=== PATIENT | female | born 1970 | race Caucasian/White ===

== ENCOUNTER 2020-03-14 06:11 | Day surgery (SDC) | payer MEDICAID, SELFPAY ==
--- NOTE | 2020-03-13 08:23 | HO.ANESPROP2 ---
Documented by User: Aileen Stark 03/13/20 08:41 HPI - Anesthesia Eval Consult details Narrative: 50yo F for R breast mass excision (nipple) PMFSH Past Medical History Medical History (Updated 03/13/20 @ 08:39 by Aileen Stark) High cholesterol Migraines Surgical History Surgical History (Updated 03/13/20 @ 08:40 by Aileen Stark) History of pubovaginal sling History of tubal ligation Social History Social History Use of substances other than those prescribed or required for medical reasons: No Advance Directives: No Advance Directives Information Provided: Yes Advance Directives on File: No Meds Allergies Allergy/AdvReac Type Severity Reaction Status Date / Time cyclobenzaprine Allergy Unknown Unknown Verified 03/13/20 11:31 oxybutynin Allergy Unknown Unknown Verified 03/13/20 11:31 tolterodine Allergy Unknown Unknown Verified 03/13/20 11:31 trospium Allergy Unknown Unknown Verified 03/13/20 11:31 Home Medications Medication Instructions Recorded Confirmed Type atorvastatin 20 mg PO DAILY 03/13/20 03/13/20 History calcium polycarbophil [FiberCon] 1,250 mg PO TID 03/13/20 03/13/20 History cholecalciferol (vitamin D3) 50 mcg PO DAILY 03/13/20 03/13/20 History [Vitamin D3] cholestyramine-aspartame 4 g PO DAILY 03/13/20 03/13/20 History [Cholestyramine Light] diphenhydramine HCl [Benadryl] 25 mg PO DAILY 03/13/20 03/13/20 History docusate sodium [Colace] 100 mg PO DAILY 03/13/20 03/13/20 History epinephrine 03/13/20 History fexofenadine 180 mg PO DAILY 03/13/20 03/13/20 History fexofenadine [Corrine Allergy] 60 mg PO BID 03/13/20 03/13/20 History fluticasone propionate [Flonase] 1 spray INTRANASAL DAILY 03/13/20 03/13/20 History gabapentin 300 mg PO DAILY 03/13/20 03/13/20 History ibuprofen 600 mg PO TID 03/13/20 03/13/20 History omeprazole 20 mg PO DAILY 03/13/20 03/13/20 History topiramate 25 mg PO BID 03/13/20 03/13/20 History Exam Exam Date and Time: March 13, 2020 0823 Assessment and Plan Assessment Anesthesia Assessment: Chart Reviewed Documented by User: Treva Zimmer 03/14/20 07:17 REPLACED BY [facility] Past Medical History Medical History (Updated 03/13/20 @ 08:39 by Aileen Stark) High cholesterol Migraines Surgical History Surgical History (Updated 03/13/20 @ 08:40 by Aileen Stark) History of pubovaginal sling History of tubal ligation Social History Social History Use of substances other than those prescribed or required for medical reasons: No Advance Directives: No Advance Directives Information Provided: Yes Advance Directives on File: No Meds Allergies Allergy/AdvReac Type Severity Reaction Status Date / Time cyclobenzaprine Allergy Unknown Unknown Verified 03/13/20 11:31 oxybutynin Allergy Unknown Unknown Verified 03/13/20 11:31 tolterodine Allergy Unknown Unknown Verified 03/13/20 11:31 trospium Allergy Unknown Unknown Verified 03/13/20 11:31 Home Medications Medication Instructions Recorded Confirmed Type atorvastatin 20 mg PO DAILY 03/13/20 03/13/20 History calcium polycarbophil [FiberCon] 1,250 mg PO TID 03/13/20 03/13/20 History cholecalciferol (vitamin D3) 50 mcg PO DAILY 03/13/20 03/13/20 History [Vitamin D3] cholestyramine-aspartame 4 g PO DAILY 03/13/20 03/13/20 History [Cholestyramine Light] diphenhydramine HCl [Benadryl] 25 mg PO DAILY 03/13/20 03/13/20 History docusate sodium [Colace] 100 mg PO DAILY 03/13/20 03/13/20 History epinephrine 03/13/20 History fexofenadine 180 mg PO DAILY 03/13/20 03/13/20 History fexofenadine [Corrine Allergy] 60 mg PO BID 03/13/20 03/13/20 History fluticasone propionate [Flonase] 1 spray INTRANASAL DAILY 03/13/20 03/13/20 History gabapentin 300 mg PO DAILY 03/13/20 03/13/20 History ibuprofen 600 mg PO TID 03/13/20 03/13/20 History omeprazole 20 mg PO DAILY 03/13/20 03/13/20 History topiramate 25 mg PO BID 03/13/20 03/13/20 History Exam Airway Mallampati Class: II TM Dist: >3cm Neck ROM: Full Heart: RRR Lungs: CTA BL Assessment and Plan Assessment Anesthesia Assessment: Anesthesia Plan Discussed and Chart Reviewed Final Anesthetic Review NPO: Yes ASA Class: II Final Preanesthetic Review: Meds/Allgs Chart Reviewed, Consent Obtained/Reviewed and Anes Risks/Benef Reviewed Patient Risk: Intermediate Procedure Risk: Intermediate Anesthetic Plan Anesthetic Plan: MAC: Disposition: Standard PACU
[2020-03-13 11:36] VITALS: BMI 27.1
[2020-03-14 06:43] VITALS: BP 105/66; PULSE 94; RESP 16; TEMP 36.1; O2SAT 97
[2020-03-14] MEDS: Lactated Ringers 1,000 ML 100 ML IVCONT (06:55)
[2020-03-14] MEDS: ceFAZolin Sodium/Dextrose,Iso 2 GM/50 ML PIGGYBACK IV (06:55)
--- NOTE | 2020-03-14 07:26 | MHC.SHP ---
Pre-Procedural Eval Section A The patient is an INPATIENT: No Changes since office visit: Yes Patient answered all questions; No Cold of Flu in the past 2 weeks, No New Medical Problems and No Changes in Medication The History & Physical has been completed within 30 days and I have reviewed it.: Yes Section B Chief Complaint: RIGHT NIPPLE LESION Allergies: Allergies Allergy/AdvReac Type Severity Reaction Status Date / Time cyclobenzaprine Allergy Unknown Unknown Verified 03/13/20 11:31 oxybutynin Allergy Unknown Unknown Verified 03/13/20 11:31 tolterodine Allergy Unknown Unknown Verified 03/13/20 11:31 trospium Allergy Unknown Unknown Verified 03/13/20 11:31 Plan Diagnosis/Plan: Unchanged Patient has been examined and remains a candidate for the planned procedure
--- NOTE | 2020-03-14 07:57 | PM.OP ---
Brief Operative Note Date of procedure: 03/14/20 Pre-op diagnosis: Right nipple mass Post-op diagnosis: same Procedure: Excision right nipple mass Implants: none Surgeon: Anthony Stringer MD Anesthesia: MAC Estimated blood loss (mL): 1 Pathology: other (right nipple mass) Condition: stable Disposition: PACU
[2020-03-14 08:00] VITALS: BP 93/60; PULSE 97; RESP 16; TEMP 36.1; O2SAT 100
--- NOTE | 2020-03-14 08:00 | P.OP_ITS ---
Operative Note Operative Note Narrative: Date of procedure: 03/14/20 Pre-op diagnosis: Right nipple mass Post-op diagnosis: same Procedure: Excision right nipple mass Indications for procedure: Patient is a 50-year-old female presenting with a mass located on the right nipple which has increased in size and is causing discomfort. The patient reports occasional bleeding from the site she has requested excision. Operative findings: The patient was found to have a 0.5 cm polypoid mass located in the upper outer quadrant of the right nipple without ulceration or discharge. This was excised and the skin closed with Dermabond. Procedure details: Patient was brought to the OR placed in a supine position. After administering light sedation the patient's right breast was prepped with ChloraPrep and draped in a sterile fashion. A surgical time-out was called and the consent confirmed. Patient received preoperative antibiotics. Local anesthesia consisting of 0.5% Sensorcaine and 1% lidocaine with epinephrine combined was infiltrated in the right nipple. After assuring adequate local anesthesia the lesion of the right nipple was excised using a 15 blade. Hemostasis was assured using electrocautery. Liquid dressing using Dermabond was applied. The patient tolerated the procedure well. She was awoken the OR and transported to the PACU in stable condition. Sponge instrument needle counts reported as correct. Implants: none Surgeon: Anthony Stringer MD [place] Mechanic: None Anesthesia: MAC Estimated blood loss (mL): 1 mL Pathology: other (right nipple mass) Condition: stable Disposition: PACU
[2020-03-14 08:13] VITALS: BP 99/71; PULSE 97; RESP 18; TEMP 36.1; O2SAT 100
--- NOTE | 2020-03-14 08:55 | HO.POSTANES ---
Post Anesthesia Evaluation Post Anesthesia Evaluation Vital Signs: Vital Signs Temp Pulse Resp BP Pulse Ox 03/14/20 08:13 97 F 97 18 99/71 100 03/14/20 08:00 97.0 F 97 16 93/60 100 03/14/20 06:43 97 F 94 16 105/66 97 Anesthesia: Monitored Mental Status: Awake Pain Control: Satisfactory Nausea/Vomiting: None Hydration: Adequate Anesthesia-Related Issues: No Anes. Related Issues
== END 2020-03-14 08:51 | disposition home or self-care (01) ==
PROVIDERS: Visit Provider Surgery
PROC: (CPT 19120; principal; 2020-03-14 07:30)
DX: N64.89 Other specified disorders of breast (principal); R22.9 Localized swelling, mass and lump, unspecified; N64.59 Other signs and symptoms in breast
CPT/HCPCS: 19120; 88305; J0690; J2250; J3010

== ENCOUNTER → 2020-03-22 08:37 | Outpatient (BNVA) | payer MEDICAID, SELFPAY | PROVIDERS: Visit Provider Surgery | DX: N64.9 Disorder of breast, unspecified (principal); E78.00 Pure hypercholesterolemia, unspecified; G43.909 Migraine, unspecified, not intractable, without status migrainosus; Z88.8 Allergy status to other drugs, medicaments and biological substances; Z79.899 Other long term (current) drug therapy | CPT/HCPCS: 99212 ==

== ENCOUNTER 2020-07-30 08:44 | Outpatient (REF) | payer MEDICAID, SELFPAY ==
[2020-07-31 09:47] LABS: C. trachomatis RNA TMA NOT DETECTED (NOT DETECTED); N. gonorrhoeae RNA TMA NOT DETECTED (NOT DETECTED)
[2020-08-01 19:12] LABS: HPV mRNA E6/E7 rflx Not Detected (Not Detected)
== END 2020-07-30 08:45 | disposition home or self-care (01) ==
LOC: HO.LAB 08:44
PROVIDERS: Visit Provider Obstetrics & Gynecology
DX: Z01.419 Encounter for gynecological examination (general) (routine) without abnormal findings (principal); R10.2 Pelvic and perineal pain; Z11.3 Encounter for screening for infections with a predominantly sexual mode of transmission; Z11.8 Encounter for screening for other infectious and parasitic diseases; Z11.51 Encounter for screening for human papillomavirus (HPV); E78.00 Pure hypercholesterolemia, unspecified; G40.909 Epilepsy, unspecified, not intractable, without status epilepticus; Z88.8 Allergy status to other drugs, medicaments and biological substances
CPT/HCPCS: 36415; 87491; 87591; 87624; 88142

== ENCOUNTER 2020-08-06 09:08 | Outpatient (REF) | payer MEDICAID, SELFPAY ==
--- NOTE | ~2020-08-06 | US_ITS ---
EXAMINATION: US PELVIS COMPLETE CLINICAL INFORMATION: Pelvic pain. COMPARISON: CT 11/10/2018. TECHNIQUE: Transabdominal and transvaginal imaging of pelvis is performed. FINDINGS: The uterus is anteverted and anteflexed measuring 8.4 cm in length, 4.9 cm in AP and 6.3 cm in transverse dimension. The endometrial thickness measures 0.52 cm. There are several hypoechoic lesions. 1. Lesion in the left upper body of uterus measures 3.31 x 2.96 x 3.14 cm. Previously it measured 2.7 x 2.6 x 2.9 cm. 2. Lesion in the right upper body of uterus measures 3.28 x 2.57 x 3.31 cm. Previously it measured 1.9 x 1.8 x 1.8 cm. 3. Lesion in the upper body of the uterus measures 1.03 x 0.82 x 1.0 cm. There are several anechoic nabothian cysts seen. The right ovary measures 2.43 x 2.01 x 2.75 cm and volume 8.48 mL. It appears unremarkable. Previously right ovary measures 3.6 x 3.3 x 2.4 cm. Left ovary measures 1.61 x 1.08 x 2.10 cm and volume 1.91 mL. It appears unremarkable. Previously it measured 2.7 x 1.7 x 1.2 cm. There is no free fluid in the cul-de-sac. US/US transvaginal IMPRESSION: Two uterine fibroids with minimal change from 2019. A new third fibroid is noted. The ovaries are unremarkable. Several simple nabothian cysts seen in the cervix.
--- NOTE | ~2020-08-06 | US_ITS ---
EXAMINATION: US PELVIS COMPLETE CLINICAL INFORMATION: Pelvic pain. COMPARISON: CT 11/10/2018. TECHNIQUE: Transabdominal and transvaginal imaging of pelvis is performed. FINDINGS: The uterus is anteverted and anteflexed measuring 8.4 cm in length, 4.9 cm in AP and 6.3 cm in transverse dimension. The endometrial thickness measures 0.52 cm. There are several hypoechoic lesions. 1. Lesion in the left upper body of uterus measures 3.31 x 2.96 x 3.14 cm. Previously it measured 2.7 x 2.6 x 2.9 cm. 2. Lesion in the right upper body of uterus measures 3.28 x 2.57 x 3.31 cm. Previously it measured 1.9 x 1.8 x 1.8 cm. 3. Lesion in the upper body of the uterus measures 1.03 x 0.82 x 1.0 cm. There are several anechoic nabothian cysts seen. The right ovary measures 2.43 x 2.01 x 2.75 cm and volume 8.48 mL. It appears unremarkable. Previously right ovary measures 3.6 x 3.3 x 2.4 cm. Left ovary measures 1.61 x 1.08 x 2.10 cm and volume 1.91 mL. It appears unremarkable. Previously it measured 2.7 x 1.7 x 1.2 cm. There is no free fluid in the cul-de-sac. US/US pelvic complete IMPRESSION: Two uterine fibroids with minimal change from 2019. A new third fibroid is noted. The ovaries are unremarkable. Several simple nabothian cysts seen in the cervix.
== END 2020-08-06 09:09 | disposition home or self-care (01) ==
LOC: HO.US 09:08
PROVIDERS: Visit Provider Obstetrics & Gynecology
DX: R10.2 Pelvic and perineal pain (principal)
CPT/HCPCS: 76830; 76856

== ENCOUNTER → 2020-08-21 10:45 | Outpatient (BNVA) | payer MEDICAID, SELFPAY | PROVIDERS: Visit Provider Obstetrics & Gynecology ==

== ENCOUNTER → 2020-12-17 09:22 | Outpatient (BNVA) | payer MEDICAID, SELFPAY | PROVIDERS: PCP Nurse Practitioner Family ==

== ENCOUNTER → 2020-12-17 10:04 | Outpatient (BNV) | payer MEDICAID, SELFPAY | PROVIDERS: PCP Registered Nurse | DX: Z13.9 Encounter for screening, unspecified (principal) | CPT/HCPCS: 81003 ==

== ENCOUNTER 2021-03-11 09:15 | Outpatient (REF) | payer MEDICAID, SELFPAY ==
[2021-03-11 10:39] LABS: Hematocrit 39.2 % (37-47); Hemoglobin 12.4 g/dl (12.0-16.0); Mean Corpuscular HGB Conc 31.6 g/dl (31.0-35.0); Mean Corpuscular Hemoglobin 27.4 pg (27.0-33.0); Mean Corpuscular Volume 86.7 fL (80-98); Platelet Count 303 X10*3/uL (160-400); Red Blood Count 4.52 X10*6/uL (4.20-5.50); Red Cell Distribution Width 12.2 % (11.0-16.0)
[2021-03-11 11:25] LABS: Alanine Aminotransferase 13 U/L (0-31); Albumin Level 4.4 g/dL (3.5-5.0); Alkaline Phosphatase 79 U/L (39-117); Anion Gap 10 (12-20); Aspartate Amino Transferase 22 U/L (5-31); Bilirubin Total 0.5 mg/dL (0.0-1.0); Blood Urea Nitrogen 12 mg/dL (9-16); Calcium 9.2 mg/dL (8.4-10.2); Carbon Dioxide 24 mmol/L (22-29); Chloride 109 mmol/L (96-108); Estimated Glomerular Filt Rate 58; Glucose Random 89 mg/dL (60-115); Potassium 4.3 mmol/L (3.3-5.1); Sodium 139 mmol/L (135-145)
[2021-03-11 11:26] LABS: TSH reflex Free T4 1.18 uIU/mL (0.32-4.0)
== END 2021-03-11 09:16 | disposition home or self-care (01) ==
LOC: HO.LAB 09:15
PROVIDERS: PCP Nurse Practitioner; Referring Provider Nurse Practitioner; Visit Provider Nurse Practitioner Family
DX: K59.04 Chronic idiopathic constipation (principal)
CPT/HCPCS: 36415; 80053; 84443; 85027; 99202

== ENCOUNTER → 2021-03-26 08:39 | Outpatient (BNVA) | payer MEDICAID, SELFPAY | PROVIDERS: PCP Nurse Practitioner Family | DX: N20.0 Calculus of kidney (principal) | CPT/HCPCS: 99212 ==

== ENCOUNTER 2021-04-01 09:21 | Outpatient (REF) | payer MEDICAID, SELFPAY ==
--- NOTE | ~2021-04-01 | MM_ITS ---
EXAMINATION: MM SCREENING DIGITAL BREAST TOMOSYNTHESIS, BILATERAL CLINICAL INFORMATION: Screening. Asymptomatic. The lifetime risk of breast cancer based on the Tyrer-Cuzick Model is 7.0%. COMPARISON: Mammography: February 15, 2020 and studies dating back to October 12, 2014 TECHNIQUE: Digital breast tomosynthesis is performed in both the craniocaudal and mediolateral oblique views along with computer-aided detection (CAD). Synthesized 2D images are generated from the tomosynthesis. FINDINGS: The breasts are extremely dense, which lowers the sensitivity of mammography (ACR BI-RADS breast composition Category d). Within the superior medial aspect of the right breast there is question of a circumscribed density about the superior medial aspect without microcalcifications or definite spiculation. Spot compression view is recommended. This is stable parenchymal pattern of the left breast. MM/MM tomosynthesis screening BI IMPRESSION: Right breast density for further evaluation. ASSESSMENT: BI-RADS 0: Incomplete - Need Additional Imaging Evaluation RECOMMENDATION: 1. Additional views of the right breast 2. Targeted ultrasound if warranted after review of the additional views. 3. Radiology department staff will contact the patient for additional imaging. This patient's information was entered into a reminder system with a target due date for their next mammogram.
== END 2021-04-01 09:22 | disposition home or self-care (01) ==
LOC: HO.MAMMO 09:21
PROVIDERS: PCP Internal Medicine; Visit Provider Nurse Practitioner
DX: Z12.31 Encounter for screening mammogram for malignant neoplasm of breast (principal)
CPT/HCPCS: 77063; 77067

== ENCOUNTER 2021-04-14 09:33 | Outpatient (REF) | payer MEDICAID, SELFPAY ==
--- NOTE | ~2021-04-14 | MM_ITS ---
EXAMINATION: MM DIAGNOSTIC DIGITAL BREAST TOMOSYNTHESIS, RIGHT US DIAGNOSTIC ULTRASOUND BREAST, RIGHT CLINICAL INFORMATION: Recall from screening for question of asymmetric density upper inner breast. TC score 7%. COMPARISON: Mammography: 04/01/2021, 02/15/2020, 02/07/2019, 01/20/2018 TECHNIQUE: Digital breast tomosynthesis is performed. 2D images are generated from the tomosynthesis. The following views are provided: Rolled CC, spot CC x2, spot MLO x2, spot ML. Ultrasound of the right breast is performed using grayscale imaging and color Doppler without and with harmonics. FINDINGS: The breasts are heterogeneously dense, which may obscure small masses (ACR BI-RADS breast composition Category c). The additional views show no asymmetric density or mass or architectural abnormality in the area of recent imaging concern. Ultrasound demonstrates no cystic or solid mass or architectural abnormality. Results are discussed with the patient at time of visit. MM/MM tomosynthesis added views R IMPRESSION: Additional mammography imaging demonstrates no persistent asymmetric density. No ultrasound correlate. ASSESSMENT: BI-RADS 1: Negative RECOMMENDATION: Routine annual mammography screening. This patient's information was entered into a reminder system with a target due date for their next mammogram.
== END 2021-04-14 09:34 | disposition home or self-care (01) ==
LOC: HO.MAMMO 09:33
PROVIDERS: Visit Provider Nurse Practitioner
DX: R92.2 Inconclusive mammogram (principal)
CPT/HCPCS: 76642; 77061; 77065

== ENCOUNTER → 2021-04-15 09:02 | Outpatient (BNVA) | payer MEDICAID, SELFPAY | PROVIDERS: PCP Nurse Practitioner; Referring Provider Nurse Practitioner; Visit Provider Nurse Practitioner Family | DX: Z12.11 Encounter for screening for malignant neoplasm of colon (principal); K59.04 Chronic idiopathic constipation | CPT/HCPCS: 99212 ==

== ENCOUNTER 2021-05-28 07:53 | Outpatient (REF) | payer MEDICAID, SELFPAY ==
--- NOTE | ~2021-05-28 | US_ITS ---
EXAMINATION: US RETROPERITONEAL LIMITED (RENAL ONLY) CLINICAL INFORMATION: Calculus of kidney. COMPARISON: CT abdomen and pelvis 03/20/2019. TECHNIQUE: Real-time imaging of the kidneys. FINDINGS: RIGHT KIDNEY: 9.7 x 4.9 x 5.0 cm (SAG x AP x TRV). The kidney is normal in size, contour, and echogenicity. Renal cortical thickness is normal. No focal parenchymal lesions. No hydronephrosis. There are echogenic areas likely vascular calcifications versus tiny stones, too small to measure. LEFT KIDNEY: 9.2 x 4.8 x 4.2 cm (SAG x AP x TRV). The kidney is normal in size, contour, and echogenicity. Renal cortical thickness is normal. No focal parenchymal lesions or hydronephrosis. There are several echogenic stones without caliectasis. Upper pole stone measures 0.3 x 0.2 cm and the midpole stone measures 0.3 x 0.3 cm. US/US renal BI IMPRESSION: Nonobstructive small echogenic stones in the upper midpole of the left kidney. Tiny stones versus vascular calcifications in the right kidney. There is no hydronephrosis.
== END 2021-05-28 07:54 | disposition home or self-care (01) ==
LOC: HO.US 07:53
PROVIDERS: PCP Nurse Practitioner
DX: N20.0 Calculus of kidney (principal)
CPT/HCPCS: 76775

== ENCOUNTER 2021-07-07 07:53 | Outpatient (REF) | payer MEDICAID, SELFPAY ==
[2021-07-07 10:39] LABS: Lipase 22 U/L (8-78)
[2021-07-09 14:21] LABS: Transglutaminase Ab IgG <1.0 U/mL; Transglutaminase IgA <1.0 U/mL
[2021-07-11 13:03] LABS: Vitamin D 25-OH, D2 <4 ng/mL; Vitamin D 25-OH, D3 58 ng/mL; Vitamin D 25-OH, Total 58 ng/mL (30-100)
== END 2021-07-07 07:54 | disposition home or self-care (01) ==
LOC: HO.LAB 07:53
PROVIDERS: PCP Nurse Practitioner; Referring Provider Nurse Practitioner; Visit Provider Nurse Practitioner Family
DX: R10.32 Left lower quadrant pain (principal); K21.9 Gastro-esophageal reflux disease without esophagitis; K59.04 Chronic idiopathic constipation; E55.9 Vitamin D deficiency, unspecified
CPT/HCPCS: 36415; 82306; 83690; 86364; 99212

== ENCOUNTER → 2021-08-04 08:17 | Outpatient (BNVA) | payer MEDICAID, SELFPAY | PROVIDERS: PCP Nurse Practitioner; Referring Provider Nurse Practitioner; Visit Provider Nurse Practitioner Family | DX: K59.04 Chronic idiopathic constipation (principal); K21.9 Gastro-esophageal reflux disease without esophagitis; R10.9 Unspecified abdominal pain | CPT/HCPCS: 99212 ==

== ENCOUNTER 2021-08-11 08:02 | Outpatient (REF) | payer MEDICAID, SELFPAY ==
[2021-08-11 14:16] LABS: CT PCR NOT DETECTED (Not Detect.); NG PCR NOT DETECTED (Not Detect.)
== END 2021-08-11 08:03 | disposition home or self-care (01) ==
LOC: HO.LAB 08:02
PROVIDERS: PCP Nurse Practitioner; Visit Provider Obstetrics & Gynecology
DX: Z01.411 Encounter for gynecological examination (general) (routine) with abnormal findings (principal); R10.2 Pelvic and perineal pain
CPT/HCPCS: 81003; 81025; 87086; 87491; 87591

== ENCOUNTER 2021-08-22 07:59 | Outpatient (REF) | payer MEDICAID, SELFPAY ==
--- NOTE | ~2021-08-22 | US_ITS ---
EXAMINATION: US RETROPERITONEAL LIMITED (RENAL ONLY) CLINICAL INFORMATION: Calculus of kidney. COMPARISON: Renal ultrasound 05/28/2021. CT abdomen and pelvis 03/20/2019. TECHNIQUE: Real-time imaging of the kidneys. FINDINGS: RIGHT KIDNEY: 9.6 x 5.2 x 4.0 cm (SAG x AP x TRV). The kidney is normal in size, contour, and echogenicity. Renal cortical thickness is normal. No focal parenchymal lesions or hydronephrosis. Upper pole 0.4 cm calculus. Lower pole 0.4 cm calculus. Vascular calcifications present. LEFT KIDNEY: 9.6 x 5.2 x 4.9 cm (SAG x AP x TRV). The kidney is normal in size, contour, and echogenicity. Renal cortical thickness is normal. No focal parenchymal lesions or hydronephrosis. Lower pole 0.4 cm calculus. Midpole 0.4 cm calculus. Upper pole 0.5 cm calculus. Multiple vascular calcifications. US/US renal BI IMPRESSION: Multiple nonobstructing bilateral renal calculi..
== END 2021-08-22 08:00 | disposition home or self-care (01) ==
LOC: HO.US 07:59
DX: N20.0 Calculus of kidney (principal)
CPT/HCPCS: 76775

== ENCOUNTER 2021-09-03 08:58 | Outpatient (REF) | payer MEDICAID, SELFPAY ==
--- NOTE | ~2021-09-03 | US_ITS ---
EXAMINATION: US PELVIS CLINICAL INFORMATION: Pain COMPARISON: Previous exam most recent July 2020 TECHNIQUE: Ultrasound of the pelvis is performed using both transabdominal and transvaginal transducers along with Doppler. Transvaginal imaging is performed due to inadequate visualization transabdominally. FINDINGS: The uterus is anteverted and measures 10 x 5 x 6.7 cm in dimension. There are 2 hypoechoic lesions in the uterus suggestive of fibroids measuring 3.5 x 2.9 x 3.1 cm in the anterior uterine body and 2.5 x 2.4 x 2.7 cm in the high posterior uterine body. These are similar to previous exam. The third 1 cm question fibroid high in the uterine fundus near the endometrium is not appreciated. The endometrium is not well visualized due to the fibroids. There may be a small amount of fluid in the endometrial cavity. There are nabothian cysts in the cervix. The ovaries are normal-appearing. The right ovary measures 2 x 1 x 1.5 cm. The left ovary measures 2.9 x 1.9 x 2.4 cm. There is no fluid in the pelvis. US/US pelvic and transvaginal IMPRESSION: Uterine fibroids. Endometrium not well visualized. There may be a small amount of fluid in the endometrial cavity. Normal-appearing ovaries.
== END 2021-09-03 08:59 | disposition home or self-care (01) ==
LOC: HO.US 08:58
PROVIDERS: Visit Provider Obstetrics & Gynecology
DX: R10.2 Pelvic and perineal pain (principal)
CPT/HCPCS: 76830; 76856

== ENCOUNTER → 2021-09-16 08:35 | Outpatient (BNVA) | payer MEDICAID, SELFPAY | PROVIDERS: PCP Nurse Practitioner; Referring Provider Nurse Practitioner; Visit Provider Nurse Practitioner Family | DX: K59.04 Chronic idiopathic constipation (principal); K21.9 Gastro-esophageal reflux disease without esophagitis; Z79.899 Other long term (current) drug therapy | CPT/HCPCS: 99212 ==

== ENCOUNTER → 2021-09-23 09:33 | Outpatient (BNVA) | payer MEDICAID, SELFPAY | PROVIDERS: PCP Nurse Practitioner | DX: N20.0 Calculus of kidney (principal) | CPT/HCPCS: 99212 ==

== ENCOUNTER → 2021-10-08 09:18 | Outpatient (BNVA) | payer MEDICAID, SELFPAY | PROVIDERS: PCP Nurse Practitioner; Visit Provider Obstetrics & Gynecology | DX: D21.9 Benign neoplasm of connective and other soft tissue, unspecified (principal); R10.2 Pelvic and perineal pain | CPT/HCPCS: 99212 ==

== ENCOUNTER → 2022-03-17 10:30 | Outpatient (BNVA) | payer MEDICAID, SELFPAY | PROVIDERS: Visit Provider Obstetrics & Gynecology | DX: N95.0 Postmenopausal bleeding (principal) | CPT/HCPCS: 99212 ==

== ENCOUNTER 2022-03-23 08:57 | Outpatient (REF) | payer MEDICAID, SELFPAY ==
--- NOTE | ~2022-03-23 | US_ITS ---
EXAMINATION: US RETROPERITONEAL LIMITED (RENAL ONLY) CLINICAL INFORMATION: Calculus of kidney. COMPARISON: Ultrasound retroperitoneal limited (renal only) 08/22/2021 and 05/28/2021. CT abdomen and pelvis without and with contrast 03/20/2019. TECHNIQUE: Real-time imaging of the kidneys. FINDINGS: RIGHT KIDNEY: 10.2 x 5.2 x 4.8 cm (SAG x AP x TRV). The kidney is normal in size, contour, and echogenicity. Renal cortical thickness is normal. No focal parenchymal lesions or hydronephrosis. There is a 0.3 cm calculus in the upper pole and a 0.3 cm calculus in the lower pole. There is a clustered of punctate calcifications in the interpolar region, likely additional calculi. LEFT KIDNEY: 10.1 x 5.6 x 4.8 cm (SAG x AP x TRV). The kidney is normal in size, contour, and echogenicity. Renal cortical thickness is normal. No focal parenchymal lesions or hydronephrosis. There is a 0.3 cm calculus in the upper pole and a 0.3 cm calculus in the lower pole. US/US renal BI IMPRESSION: Nonobstructive bilateral renal calculi.
== END 2022-03-23 08:58 | disposition home or self-care (01) ==
LOC: HO.US 08:57
PROVIDERS: Visit Provider Urology
DX: N20.0 Calculus of kidney (principal)
CPT/HCPCS: 76775

== ENCOUNTER 2022-04-03 08:52 | Outpatient (REF) | payer MEDICAID, SELFPAY ==
--- NOTE | ~2022-04-03 | MM_ITS ---
EXAMINATION: MM DIAGNOSTIC DIGITAL BREAST TOMOSYNTHESIS, BILATERAL CLINICAL INFORMATION: Pain, lumpiness and discomfort, left breast COMPARISON: Mammography: 04/14/2021 and studies dating back to 12/05/2015 TECHNIQUE: Digital breast tomosynthesis is performed in both the craniocaudal and mediolateral oblique views along with computer-aided detection (CAD). Synthesized 2D images are generated from the tomosynthesis. Targeted right breast ultrasound. FINDINGS: The breasts are extremely dense, which lowers the sensitivity of mammography (ACR BI-RADS breast composition Category d). There are no significant masses, abnormal calcifications, or other abnormalities. Targeted left breast ultrasound demonstrated a simple cyst with smooth back wall and increased through-sound transmission and no internal vascularity with being anechoic measuring approximately 5 x 3 x 5 mm in size at the 12 o'clock position 4 cm from the nipple. Results are discussed with the patient at time of visit. MM/MM tomosynthesis diagnostic BI IMPRESSION: No mammographic evidence of malignancy. ASSESSMENT: BI-RADS 2: Benign RECOMMENDATION: Routine annual mammography screening due in 12 months. This patient's information was entered into a reminder system with a target due date for their next mammogram.
== END 2022-04-03 08:53 | disposition home or self-care (01) ==
LOC: HO.MAMMO 08:52
PROVIDERS: PCP Internal Medicine; Visit Provider Internal Medicine
DX: N64.4 Mastodynia (principal); N63.20 Unspecified lump in the left breast, unspecified quadrant
CPT/HCPCS: 76642; 77062; 77066

== ENCOUNTER → 2022-04-15 09:53 | Outpatient (BNVA) | payer MEDICAID, SELFPAY | PROVIDERS: PCP Internal Medicine; Visit Provider Orthopaedic Surgery | DX: M79.641 Pain in right hand (principal) | CPT/HCPCS: 99202 ==

== ENCOUNTER 2022-04-22 10:44 | Outpatient (REF) | payer MEDICAID, SELFPAY ==
--- NOTE | ~2022-04-22 | US_ITS ---
EXAMINATION: US PELVIS CLINICAL INFORMATION: Postmenopausal bleeding. COMPARISON: None TECHNIQUE: Ultrasound of the pelvis is performed using both transabdominal and transvaginal transducers along with Doppler. Transvaginal imaging is performed due to inadequate visualization transabdominally. FINDINGS: Uterus: The uterus is anteverted, anteflexed and measures 10.0 cm in length, 4.8 mL in AP and 6.9 cm in transverse dimension. The double wall endometrium is not well visualized.. The uterus is smooth in contour and heterogeneous echogenicity. There is a solitary hypoechoic lesion in the anterior body of the uterus measuring 4.0 x 3.3 x 2.4 cm. Previously the same lesion measured 3.5 x 2.9 x 3.1 cm. Previously seen fibroids are not visualized on this exam. There is fluid visualized within the endometrial canal and cervical canal. Adnexa: Both ovaries are visualized. There is normal color flow to the adnexa. There is no ovarian torsion. There is no pelvic ascites or fluid collection. Right ovary measures 2.5 x 1.6 x 1.5 cm and volume 3.2 mL. There is an anechoic cyst with septation measuring 1.6 x 1.2 x 1.1 cm. Left ovary measures 1.9 x 1.1 x 2.3 cm and volume 2.5 mL and is only visualized on the transabdominal ultrasound. There is no free fluid in the cul-de-sac. US/US pelvic and transvaginal IMPRESSION: Anechoic septated cyst right ovary measuring 1.6 cm. Solitary fibroid visualized in the upper anterior uterus. Previously seen small fibroids are not seen at this time. Moderate fluid seen within the endometrial canal less smaller fluid in the cervical canal.
== END 2022-04-22 10:45 | disposition home or self-care (01) ==
LOC: HO.US 10:44
PROVIDERS: Visit Provider Obstetrics & Gynecology
DX: N95.0 Postmenopausal bleeding (principal)
CPT/HCPCS: 76830; 76856

== ENCOUNTER 2022-06-03 09:29 | Outpatient (REF) | payer MEDICAID, SELFPAY ==
[2022-06-05 10:18] LABS: CA-125 27 U/mL (<35)
== END 2022-06-03 09:30 | disposition home or self-care (01) ==
LOC: HO.LAB 09:29
PROVIDERS: PCP Internal Medicine; Visit Provider Obstetrics & Gynecology
DX: N83.299 Other ovarian cyst, unspecified side (principal); N95.0 Postmenopausal bleeding; D21.9 Benign neoplasm of connective and other soft tissue, unspecified
CPT/HCPCS: 36415; 86304; 99212

== ENCOUNTER 2022-06-19 08:34 | Day surgery (SDC) | payer MEDICAID, SELFPAY ==
[2022-06-12 10:59] VITALS: BMI 25.3
--- NOTE | 2022-06-18 09:26 | P.CONAN_ITS ---
Documented by User: Aileen Stark NP 06/18/22 09:27 HPI - Anesthesia Eval Consult details Narrative: 52yo F for D&C Hysteroscopy possible polypectomy/myomectomy PMFSH Active Problems Active Problems: All Active Problems (Updated 06/12/22 @ 10:55 by Janett Lu RN) Nipple lesion (Acute) Well woman exam (Acute) Pelvic pain (Acute) Myoma (Acute) Postmenopausal bleeding (Acute) Right hand pain (Acute) Complex ovarian cyst (Acute) Renal stones (Acute) Past Medical History Medical History (Updated 06/12/22 @ 10:55 by Janett Lu RN) GERD (gastroesophageal reflux disease) High cholesterol Lesion of right nipple Microscopic hematuria Migraines Renal stones OTIS (stress urinary incontinence, female) Surgical History Surgical History History of endometrial ablation History of excision of lesion History of pubovaginal sling History of tubal ligation Social History Social History Household Members: Spouse and Children Housing: House Alcohol intake: never Patient Tobacco Use Status: Never used Tobacco Advance Directives: No Advance Directives Information Provided: Yes Recently lost weight without trying: No Nutrition Risks: No Nutritional Risk Patient : No service: No Current occupational status: unemployed Sexual orientation: Straight/Heterosexual Gender identity: Female Meds Allergies Allergy/AdvReac Type Severity Reaction Status Date / Time senna [From Senokot] Allergy Intermediate Rash Verified 03/17/22 11:51 cyclobenzaprine Allergy Unknown Unknown Verified 03/17/22 11:51 oxybutynin Allergy Unknown Unknown Verified 03/17/22 11:51 tolterodine Allergy Unknown Unknown Verified 03/17/22 11:51 trospium Allergy Unknown Unknown Verified 03/17/22 11:51 Home Medications Medication Instructions Recorded Confirmed Last Taken Type atorvastatin 20 mg tablet 20 mg PO DAILY 03/13/20 03/22/20 Unknown History cholecalciferol (vitamin D3) 50 50 mcg PO DAILY 03/13/20 03/22/20 Unknown History mcg (2,000 unit) capsule (Vitamin D3) epinephrine 0.3 mg/0.3 mL 03/13/20 03/22/20 Unknown History injection, auto-injector ibuprofen 600 mg tablet 600 mg PO TID 03/13/20 03/22/20 06/16/22 History omeprazole 20 mg tablet,delayed 20 mg PO DAILY 03/13/20 03/22/20 Unknown History release hydroxyzine HCl 25 mg tablet 25 mg PO Q8H PRN itch 09/16/21 Unknown History lidocaine 5 % topical patch 1 patch transdermal DAILY 09/16/21 Unknown History (Lidoderm) abdominal pain topiramate 25 mg tablet 50 mg PO ONCE 09/16/21 Unknown History Exam Exam Date and Time: June 18, 2022925 Height,Weight and Vital Signs: Height 5 ft 1 in Weight 60.781 kg Assessment and Plan Assessment Anesthesia Assessment: Chart Reviewed Documented by User: Maximilian Freed MD 06/19/22 09:52 [facility] Past Medical History Medical History (Updated 06/12/22 @ 10:55 by Janett Lu RN) GERD (gastroesophageal reflux disease) High cholesterol Lesion of right nipple Microscopic hematuria Migraines Renal stones OTIS (stress urinary incontinence, female) Patient : No Family History Family history of problems with anesthesia: No Surgical History Surgical History History of endometrial ablation History of excision of lesion History of pubovaginal sling History of tubal ligation History of Problems with Anesthesia: No Social History Social History Household Members: Spouse and Children Housing: House Alcohol intake: never Patient Tobacco Use Status: Never used Tobacco Advance Directives: No Advance Directives Information Provided: Yes Recently lost weight without trying: No Nutrition Risks: No Nutritional Risk Patient : No service: No Current occupational status: unemployed Sexual orientation: Straight/Heterosexual Gender identity: Female Meds Allergies Allergy/AdvReac Type Severity Reaction Status Date / Time senna [From Senokot] Allergy Intermediate Rash Verified 03/17/22 11:51 cyclobenzaprine Allergy Unknown Unknown Verified 03/17/22 11:51 oxybutynin Allergy Unknown Unknown Verified 03/17/22 11:51 tolterodine Allergy Unknown Unknown Verified 03/17/22 11:51 trospium Allergy Unknown Unknown Verified 03/17/22 11:51 Home Medications Medication Instructions Recorded Confirmed Last Taken Type atorvastatin 20 mg tablet 20 mg PO DAILY 03/13/20 03/22/20 Unknown History cholecalciferol (vitamin D3) 50 50 mcg PO DAILY 03/13/20 03/22/20 Unknown History mcg (2,000 unit) capsule (Vitamin D3) epinephrine 0.3 mg/0.3 mL 03/13/20 03/22/20 Unknown History injection, auto-injector ibuprofen 600 mg tablet 600 mg PO TID 03/13/20 03/22/20 06/16/22 History omeprazole 20 mg tablet,delayed 20 mg PO DAILY 03/13/20 03/22/20 Unknown History release hydroxyzine HCl 25 mg tablet 25 mg PO Q8H PRN itch 09/16/21 Unknown History lidocaine 5 % topical patch 1 patch transdermal DAILY 09/16/21 Unknown History (Lidoderm) abdominal pain topiramate 25 mg tablet 50 mg PO ONCE 09/16/21 Unknown History Exam Airway Mallampati Class: I TM Dist: >3cm Neck ROM: Full Heart: ok Lungs: ok Assessment and Plan Final Anesthetic Review Family History of Problems with Anesthesia: No History of Problems with Anesthesia: No NPO: Yes ASA Class: II Final Preanesthetic Review: No Changes in Pt Med Stat, Meds/Allgs Chart Reviewed, Consent Obtained/Reviewed and Anes Risks/Benef Reviewed Patient Risk: Low Procedure Risk: Low Anesthetic Plan Anesthetic Plan: GA and Agree w/ Assess. and Plan Disposition: Standard PACU
[2022-06-19] VITALS (9 sets, daily range): BP systolic 83–115; BP diastolic 47–79; PULSE 59–89; RESP 6–18; TEMP 36.3–36.6; O2SAT 97–100
[2022-06-19] MEDS: Lactated Ringers 1,000 ML 100 ML IVCONT (09:26)
--- NOTE | 2022-06-19 09:40 | MHC.SHP ---
Pre-Procedural Eval Section A Date of Service: 06/19/22 The patient is an INPATIENT: No Changes since office visit: No Cold of Flu in the past 2 weeks, No New Medical Problems, No Changes in Medication and No Patient answered all questions The History & Physical has been completed within 30 days and I have reviewed it.: Yes Section B Chief Complaint: Postmenopausal bleeding Allergies: Allergies Allergy/AdvReac Type Severity Reaction Status Date / Time senna [From Senokot] Allergy Intermediate Rash Verified 03/17/22 11:51 cyclobenzaprine Allergy Unknown Unknown Verified 03/17/22 11:51 oxybutynin Allergy Unknown Unknown Verified 03/17/22 11:51 tolterodine Allergy Unknown Unknown Verified 03/17/22 11:51 trospium Allergy Unknown Unknown Verified 03/17/22 11:51 Plan Diagnosis/Plan: Unchanged I have reviewed the history and physical and performed a pertinent physical examination on my patient. No changes have occurred unless specified. Time Spent With Patient Time: Total time managing care of this patient today ____ minutes.
--- NOTE | 2022-06-19 10:20 | PM.OP ---
Brief Operative Note Date of Service: 06/19/22 Pre-op diagnosis: Postmenopausal bleeding Post-op diagnosis: same (Intrauterine adhesions) Procedure: Hysteroscopy D&C Surgeon: Prabhu Feliciano MD Anesthesia: GLMA Was an Blow Molding Machine Tender used for this Procedure?: No Estimated blood loss (mL): 0 Pathology: other (Endometrial Scrapping) Condition: stable Disposition: PACU
--- NOTE | 2022-06-19 10:21 | W.PM.OPN ---
Operative Note Operative Note Date of Service: 06/19/22 Narrative: Preop Diagnosis: Post Menopausal bleeding Operation: Diagnostic Hysteroscopy, Dilataion & Curettage Post Op Diagnosis: Intrauterine adhesions from previous endometrial ablation QBL: Minimal Anesthesia: GLMA Surgeon: Prabhu Feliciano MD Nutritionalist: None Complication: None Pathology: Endometrial Scrapings Procedure: The patient was put in the dorsal lithotomy position, scrubbed, and draped in the usual manner. A sterile speculum was inserted in the patient's vagina. The anterior lip of the cervix was grasped with a single tooth tenaculum. The cervix was dilated up to 5 mm, then the scope was inserted in the patient's uterus. Inspection revealed extensive intrauterine adhesions from previous endometrial ablation. The Myosure Reach device was used; the scope was removed from the endometrial cavity , sharp curettings was carried on with minimal amount of tissues retrieved. At the end of the procedure, all instruments were taken out of the patient uterine and vaginal cavity. The single tooth tenaculum was removed and homeostasis was assured using pressure,. The patient tolerated the procedure well and was transferred to the PACU in a stable condition.
[2022-06-19] MEDS: Acetaminophen 325 MG TABLET 650 MG PO (10:48)
[2022-06-19] MEDS: oxyCODONE HCl Immed Release 5 MG TABLET PO (10:49)
== END 2022-06-19 12:07 | disposition home or self-care (01) ==
PROVIDERS: PCP Internal Medicine; Visit Provider Obstetrics & Gynecology
PROC: 0UDB8ZZ Extraction of Endometrium, Via Natural or Artificial Opening Endoscopic (ICD-10-PCS; CPT 58558; principal; 2022-06-19 10:10)
DX: N95.0 Postmenopausal bleeding (principal); N73.6 Female pelvic peritoneal adhesions (postinfective); D21.9 Benign neoplasm of connective and other soft tissue, unspecified; N83.299 Other ovarian cyst, unspecified side; N39.3 Stress incontinence (female) (male); Z98.51 Tubal ligation status; G43.909 Migraine, unspecified, not intractable, without status migrainosus; E78.00 Pure hypercholesterolemia, unspecified; Z79.1 Long term (current) use of non-steroidal anti-inflammatories (NSAID); Z79.899 Other long term (current) drug therapy; Z88.8 Allergy status to other drugs, medicaments and biological substances
CPT/HCPCS: 58558; 88305; J1885; J2405; J3010

== ENCOUNTER 2022-07-01 09:24 | Day surgery (SDC) | payer MEDICAID, SELFPAY ==
[2022-06-25 13:37] VITALS: BMI 25.4
--- NOTE | 2022-07-01 09:49 | P.CONAN_ITS ---
[facility] Active Problems Active Problems: All Active Problems (Updated 06/12/22 @ 10:55 by Janett Lu RN) Nipple lesion (Acute) Well woman exam (Acute) Pelvic pain (Acute) Myoma (Acute) Postmenopausal bleeding (Acute) Right hand pain (Acute) Complex ovarian cyst (Acute) Renal stones (Acute) Past Medical History Medical History (Updated 06/12/22 @ 10:55 by Janett Lu RN) GERD (gastroesophageal reflux disease) High cholesterol Lesion of right nipple Microscopic hematuria Migraines Renal stones OTIS (stress urinary incontinence, female) Family History Family history of problems with anesthesia: No Surgical History Surgical History (Updated 06/25/22 @ 13:33 by Janett Lu RN) History of endometrial ablation History of excision of lesion History of pubovaginal sling History of tubal ligation Hx of dilation and curettage History of Problems with Anesthesia: No Social History Social History Household Members: Spouse and Children Housing: House Alcohol intake: never Patient Tobacco Use Status: Never used Tobacco Advance Directives: No Advance Directives Information Provided: Yes service: No Current occupational status: unemployed Sexual orientation: Straight/Heterosexual Gender identity: Female Meds Allergies Allergy/AdvReac Type Severity Reaction Status Date / Time senna [From Senokot] Allergy Intermediate Rash Verified 03/17/22 11:51 cyclobenzaprine Allergy Unknown Unknown Verified 03/17/22 11:51 oxybutynin Allergy Unknown Unknown Verified 03/17/22 11:51 tolterodine Allergy Unknown Unknown Verified 03/17/22 11:51 trospium Allergy Unknown Unknown Verified 03/17/22 11:51 Home Medications Medication Instructions Recorded Confirmed Last Taken Type atorvastatin 20 mg tablet 20 mg PO DAILY 03/13/20 03/22/20 Unknown History cholecalciferol (vitamin D3) 50 50 mcg PO DAILY 03/13/20 03/22/20 Unknown History mcg (2,000 unit) capsule (Vitamin D3) epinephrine 0.3 mg/0.3 mL 03/13/20 03/22/20 Unknown History injection, auto-injector ibuprofen 600 mg tablet 600 mg PO TID 03/13/20 03/22/20 06/16/22 History omeprazole 20 mg tablet,delayed 20 mg PO DAILY 03/13/20 03/22/20 Unknown History release hydroxyzine HCl 25 mg tablet 25 mg PO Q8H PRN itch 09/16/21 Unknown History lidocaine 5 % topical patch 1 patch transdermal DAILY 09/16/21 Unknown History (Lidoderm) abdominal pain topiramate 25 mg tablet 50 mg PO ONCE 09/16/21 Unknown History Exam Exam Date and Time: July 01, 2022 0949 Height,Weight and Vital Signs: Height 5 ft 1 in Weight 61 kg Airway Mallampati Class: II TM Dist: >3cm Neck ROM: Full Heart: rrr Lungs: cta Assessment and Plan Assessment Anesthesia Assessment: Anesthesia Plan Discussed and Chart Reviewed Final Anesthetic Review Family History of Problems with Anesthesia: No History of Problems with Anesthesia: No NPO: Yes ASA Class: II Final Preanesthetic Review: No Changes in Pt Med Stat, Meds/Allgs Chart Reviewed and Consent Obtained/Reviewed Patient Risk: Intermediate Procedure Risk: Intermediate Anesthetic Plan Anesthetic Plan: MAC: Disposition: Standard PACU
[2022-07-01 10:16] VITALS: BMI 22.6
[2022-07-01] MEDS: Lactated Ringers 1,000 ML 50 ML IVCONT (10:19)
--- NOTE | 2022-07-01 10:28 | P.HPSUR_ITS ---
Pre-Procedural Eval Section A Date of Service: 07/01/22 Section B Chief Complaint: Chronic idiopathic constipation,screening Details of Present Illness: father crc aged 70 Relevant Family History (Specify if Yes): Yes Relevant Social History: None Present Medications: see Short Stay Collaborative assessment Medical History: Significant History (GERD (gastroesophageal reflux disease) High cholesterol Lesion of right nipple Microscopic hematuria Migraines Renal stones OTIS (stress urinary incontinence, female)) History of Previous Operations: Relevant previous surgery/procedure and date(s) (History of endometrial ablation History of excision of lesion History of pubovaginal sling History of tubal ligation Hx of dilation and curettage) Allergies: Allergies Allergy/AdvReac Type Severity Reaction Status Date / Time senna [From Senokot] Allergy Intermediate Rash Verified 03/17/22 11:51 cyclobenzaprine Allergy Unknown Unknown Verified 03/17/22 11:51 oxybutynin Allergy Unknown Unknown Verified 03/17/22 11:51 tolterodine Allergy Unknown Unknown Verified 03/17/22 11:51 trospium Allergy Unknown Unknown Verified 03/17/22 11:51 Review of Systems Sugical H&P ROS: Negative: Constitution, Cardiovascular, Respiratory, Neurologi norbert, Psychiatric, Hem-Onc, Allergic/Immunologic, Gastrointestinal, Genitourinary, Musculoskeletal, Integumentary, Endocrine and Eyes/Ears/Nose/Throat Exam Surgical H&P Exam: Normal: HEENT, Normal: Heart, Normal: Lungs, Normal: Extremities, Normal: Abdomen, Normal: Skin and Normal: Neurological Plan Diagnosis/Plan: Unchanged I have reviewed the history and physical and performed a pertinent physical examination on my patient. No changes have occurred unless specified. Time Spent With Patient Time: Total time managing care of this patient today ____ minutes.
--- NOTE | 2022-07-01 10:29 | W.PM.OPN ---
Operative Note Operative Note Date of Service: 07/01/22 Narrative: Operative Information Procedure Description: Colonoscopy Indication: screening Anesthesia: MAC COLONOSCOPY Instrument: Olympus variable stiffness pediatric scope 190L Colonoscopy Monitoring: Vital signs and clinical assessment, continuous EKG monitoring, Pulse oximetry, Carbon Dioxide monitoring and blood pressure monitoring were done throughout the procedure. Colon withdrawal time was 23 minutes. Procedure: The patient was placed in the left lateral decubitis position and pre-procedure medications were administered. After a digital rectal examination of the ano-rectum, the video colonoscope was inserted into the rectum and advanced through the colon to the cecum/TI. The colonoscope was slowly withdrawn in a retrograde panoramic fashion and the colon mucosa was carefully examined including a retroflexed view of the rectum. Findings and interventions are described below. Procedure Difficulty: easy Findings: Terminal Ileum-normal Cecum: 4-5 mm sessile polyp removed with cold forceps Ascending Colon: normal Transverse Colon -normal Descending Colon:normal Sigmoid Colon: mild diverticulosis, x1 sessile polyp 6-8 mm removed with cold forceps Rectum: Retroflexion with small internal hemorrhoids, grade I Anorectum - normal Colon preparation: Hackberry Bowel Preparation Scale Right colon; 1-2 Transverse colon: 2 Left colon; 1-2 (0 = Unprepared colon segment with mucosa not seen due to solid stool that cannot be cleared. 1 = Portion of mucosa of the colon segment seen, but other areas of the colon segment not well seen due to staining, residual stool and/or opaque liquid. 2 = Minor amount of residual staining, small fragments of stool and/or opaque liquid, but mucosa of colon segment seen well. 3 = Entire mucosa of colon segment seen well with no residual staining, small fragments of stool or opaque liquid) Impression and Post Procedure Diagnosis: polyps internal hemorrhoids diverticular disease Plan: High fiber diet leaflet Avoid straining at stool, epsom salts and sitz bath, anusol supps or cream Repeat Colonoscopy in 5 years due to polyps and fair prep in some areas or earlier if clinically indicated Above findings were reviewed with the patient and relevant handouts were provided if indicated.
[2022-07-01 11:10] VITALS: BP 96/61; PULSE 84; RESP 16; TEMP 37.4; O2SAT 100
[2022-07-01 11:25] VITALS: BP 101/72; PULSE 79; RESP 15; TEMP 36.3; O2SAT 100
== END 2022-07-01 12:15 | disposition home or self-care (01) ==
PROVIDERS: PCP Internal Medicine; Visit Provider Internal Medicine Gastroenterology
PROC: 0DJD8ZZ Inspection of Lower Intestinal Tract, Via Natural or Artificial Opening Endoscopic (ICD-10-PCS; CPT 45378; principal; 2022-07-01 10:50)
DX: Z12.11 Encounter for screening for malignant neoplasm of colon (principal); D12.5 Benign neoplasm of sigmoid colon; K63.5 Polyp of colon; K57.30 Diverticulosis of large intestine without perforation or abscess without bleeding; K64.0 First degree hemorrhoids; K59.04 Chronic idiopathic constipation; K21.9 Gastro-esophageal reflux disease without esophagitis; E78.00 Pure hypercholesterolemia, unspecified; N39.3 Stress incontinence (female) (male); N20.0 Calculus of kidney; Z79.899 Other long term (current) drug therapy; Z79.1 Long term (current) use of non-steroidal anti-inflammatories (NSAID); Z88.8 Allergy status to other drugs, medicaments and biological substances
CPT/HCPCS: 45380; 88305

== ENCOUNTER → 2022-07-06 10:30 | Outpatient (BNVA) | payer MEDICAID, SELFPAY | PROVIDERS: PCP Internal Medicine; Visit Provider Obstetrics & Gynecology | DX: N95.0 Postmenopausal bleeding (principal) | CPT/HCPCS: 99212 ==

== ENCOUNTER → 2022-07-15 08:50 | Outpatient (BNVA) | payer MEDICAID, SELFPAY | PROVIDERS: PCP Registered Nurse; Visit Provider Nurse Practitioner Family | DX: K57.30 Diverticulosis of large intestine without perforation or abscess without bleeding (principal); D12.0 Benign neoplasm of cecum; D12.5 Benign neoplasm of sigmoid colon; K64.0 First degree hemorrhoids; K59.04 Chronic idiopathic constipation; Z98.890 Other specified postprocedural states | CPT/HCPCS: 99212 ==

== ENCOUNTER 2022-09-01 10:59 | Outpatient (REF) | payer MEDICAID, SELFPAY ==
--- NOTE | ~2022-09-01 | US_ITS ---
EXAMINATION: US PELVIS CLINICAL INFORMATION: Pelvic pain. COMPARISON: Pelvic ultrasound 04/22/2022. TECHNIQUE: Ultrasound of the pelvis is performed using both transabdominal and transvaginal transducers along with Doppler. Transvaginal imaging is performed due to inadequate visualization transabdominally. FINDINGS: Uterus: The uterus is anteverted and anteflexed. The uterus measures 8.5 x 4.9 x 6.8 cm. There is a 2.3 x 2.8 x 2.8 cm left fundal fibroid. The endometrial stripe is ill-defined and not accurately measured. There is a small amount of fluid in the endometrial canal. Adnexa: Both ovaries are visualized. There is normal color flow to the adnexa. There is no ovarian torsion. Trace free fluid. Right ovary measures 2.7 x 1.1 x 1.8 cm. Volume 2.8 mL. Left ovary measures 3.1 x 1.8 x 2.1 cm. Volume 6.1 mL. Small physiologic cyst. US/US pelvic and transvaginal IMPRESSION: Ill-defined endometrium with fluid seen in the endometrial canal. 2.8 cm left fundal uterine fibroid.
== END 2022-09-01 11:00 | disposition home or self-care (01) ==
LOC: HO.US 10:59
PROVIDERS: PCP Registered Nurse; Visit Provider Obstetrics & Gynecology
DX: N83.299 Other ovarian cyst, unspecified side (principal)
CPT/HCPCS: 76830; 76856

== ENCOUNTER → 2022-09-15 10:43 | Outpatient (BNVA) | payer MEDICAID, SELFPAY | PROVIDERS: PCP Registered Nurse; Visit Provider Obstetrics & Gynecology | DX: D21.9 Benign neoplasm of connective and other soft tissue, unspecified (principal); Z87.42 Personal history of other diseases of the female genital tract | CPT/HCPCS: 99212 ==

== ENCOUNTER → 2022-10-06 08:27 | Outpatient (BNVA) | payer MEDICAID, SELFPAY | PROVIDERS: PCP Registered Nurse; Visit Provider Obstetrics & Gynecology ==

== ENCOUNTER 2023-03-10 11:01 | Outpatient (REF) | payer MEDICAID, SELFPAY ==
[2023-03-10 14:32] LABS: Alanine Aminotransferase 13 U/L (0-31); Alkaline Phosphatase 55 U/L (39-117); Anion Gap 12 (12-20); Aspartate Amino Transferase 17 U/L (5-31); Bilirubin Total 0.4 mg/dL (0.0-1.0); Blood Urea Nitrogen 12 mg/dL (9-16); Calcium 9.4 mg/dL (8.4-10.2); Carbon Dioxide 23 mmol/L (22-29); Chloride 109 mmol/L (96-108); Cholesterol 172 mg/dL (<200); Estimated Glomerular Filt Rate > 60; Glucose Random 88 mg/dL (60-115); HDL Cholesterol 53 mg/dL (>40); LDL Cholesterol Calculated 108 mg/dL (<100); Potassium 3.9 mmol/L (3.3-5.1); Sodium 140 mmol/L (135-145); Total Protein 6.7 g/dL (6.5-8.0); Triglycerides 56 mg/dL (<150)
== END 2023-03-10 11:02 | disposition home or self-care (01) ==
LOC: HO.HHCL 11:01
PROVIDERS: Visit Provider Internal Medicine Geriatric Medicine
DX: Z00.00 Encounter for general adult medical examination without abnormal findings (principal)
CPT/HCPCS: 36415; 80053; 80061

== ENCOUNTER 2023-07-27 12:30 | Outpatient (REF) | payer MEDICAID, SELFPAY | END 2023-07-27 12:31 | disposition home or self-care (01) | LOC: HO.LNP 12:30 | PROVIDERS: PCP Registered Nurse; Visit Provider Obstetrics & Gynecology | DX: R31.29 Other microscopic hematuria (principal); N95.0 Postmenopausal bleeding; R10.2 Pelvic and perineal pain | CPT/HCPCS: 81003; 87086; 99212 ==

== ENCOUNTER 2023-07-27 12:30 | Outpatient (AMB) | payer MEDICAID, SELFPAY ==
--- NOTE | 2023-07-27 12:41 | MHC.OFFVIS ---
Intake Vital Signs 07/27/23 12:42 Height 5 ft 1 in Weight 136 lb BMI 25.7 BP 112/66 Intake Visit Reasons: vag bleeding [employer] Department Marine Engineer Required: Yes [employer] Department Marine Engineer Language: Triage Licensed Practical Nurse Name: nikita [id number] Information Interpreted: non-clinical & clinical Humidifier Attendant: Humidifier Attendant Present (Aidyn) Allergies senna [From Senokot] Allergy (Intermediate, Verified 07/27/23 12:44) Rash cyclobenzaprine Allergy (Unknown, Verified 07/27/23 12:44) Unknown oxybutynin Allergy (Unknown, Verified 07/27/23 12:44) Unknown tolterodine Allergy (Unknown, Verified 07/27/23 12:44) Unknown trospium Allergy (Unknown, Verified 07/27/23 12:44) Unknown Is last menstrual period known: No Post menopausal: Yes HPI HPI Comments History of Present Illness Details Presenting insert 2 week history of vaginal spotting associated with left pelvic pain no urinary or GI symptoms. The patient is not have any vaginal bleeding over the last year. Last co testing with in 08/11 was negative PFSH Medical History (Updated 07/27/23 @ 13:06 by Prabhu Feliciano MD) Tubular adenoma GERD (gastroesophageal reflux disease) Microscopic hematuria Lesion of right nipple OTIS (stress urinary incontinence, female) Renal stones Migraines High cholesterol Surgical History Hx of dilation and curettage History of excision of lesion History of endometrial ablation History of pubovaginal sling History of tubal ligation Family History Mother Uterine cancer Social History Household Members: Spouse and Children Housing: House Alcohol intake: never Patient Tobacco Use Status: Never used Tobacco service: No Current occupational status: unemployed Sexual orientation: Straight/Heterosexual Gender identity: Female Female Reproductive History Menstrual Age of Menarche: 12 control method: permanent sterilization Total pregnancies: 5 Full term: 5 Number of Living Children: 5 Date of last pap smear: 07/31/20 (negative) Review of Systems Const All systems reviewed & are unremarkable except as noted in HPI and below Physical Exam Vital Signs: Last Vital Signs BP 112/66 07/27/23 12:42 BMI result Body Mass Index 25.7 General: Yes no CVA tenderness External Female Exam: normal external appearance and normal appearance of the urethra Speculum Exam - Vagina: normal appearance of the vagina, normal palpation, no lesions and no masses Speculum Exam - Cervix: normal appearance of the cervix, normal palpation, no lesions, no masses and nontender Bimanual exam- vagina & uterus: normal bimanual exam, normal palpation, uterine size normal, normal palpation, uterine shape normal, No Cervical tenderness present and non-tender Bimanual Exam- Adnexa, other: normal adnexae Back/Spine/Pelvis Back: no CVA tenderness Assessment & Plan Assessment & Plan (1) Postmenopausal bleeding: Comment: History of endometrial ablation and intrauterine adhesion on hysteroscopy Code(s): N95.0 - Postmenopausal bleeding Plan: Discussed with the patient the differential diagnosis of post menopausal bleeding with normal pelvic exam including but not limited to, endometrial hyperplasia, cancer, polyps and other causes; co testing done, recommended ultrasound to measure the endometrial stripe; discussed with the patient that if the endometrial thickness is 4 mm or less the negative predictive value of endometrial pathology is 99%, otherwise If endometrial thickness is more than 4 mm will proceed with endometrial sampling versus hysteroscopy D&C polypectomy depending on the ultrasound findings. Instructed the patient to schedule an ultrasound follow-up appointment in 2 weeks. All questions answered, the patient verbalized understanding and agreed with the plan. (2) Pelvic pain: Code(s): R10.2 - Pelvic and perineal pain Plan: Pelvic ultrasound ordered. Discussed with the patient the differential diagnosis of pelvic pain including but not limited to adnexal, uterine masses, pelvic infections (PID), GI the (Irritable bowel syndrome, diverticulitis, others), musculoskeletal, myofascial pain abdominal wall , adhesions, endometriosis, psychological and others causes. Will check results and treat accordingly. All questions answered, the patient verbalized understanding. Instructed the patient to schedule follow-up appointment in 2 weeks (3) Microscopic hematuria: Code(s): R31.29 - Other microscopic hematuria Plan: Urine dip showed microscopic hematuria, will send urine for culture and repeat urine dip next visit. Instructions given to patient to schedule a 2 week repeat urine dip follow-up appointment Orders: Orders US pelvic and transvaginal Today N95.0 - Postmenopausal bleeding, R10.2 - Pelvic and perineal pain Coding Level of Care Code Est Pt Level 3 (71467) Diagnoses Postmenopausal bleeding N95.0 Pelvic pain R10.2 Microscopic hematuria R31.29
[2023-07-27 12:42] VITALS: BP 112/66; BMI 25.7
== END 2023-07-27 13:09 | disposition home or self-care (01) ==
LOC: HO.HWS 12:30
PROVIDERS: PCP Registered Nurse; Visit Provider Obstetrics & Gynecology
DX: N95.0 Postmenopausal bleeding (principal); R10.2 Pelvic and perineal pain; R31.29 Other microscopic hematuria
CPT/HCPCS: 99213

== ENCOUNTER 2024-09-22 14:29 | Outpatient (REF) | payer SELFPAY ==
--- OUTSIDE RECORDS SUMMARY | 2024-09-22 14:38 | XMS_ITS | Encounter Summary ---
Author Organization [facility] Address [address] [place] [address] [place] [address] Care Team Providers Care Pantographer Name Role Phone Jaelyn GarciaP Primary Care Provider [phone] Janeth Parrish LINK AND LINK KNITTING MACHINE OPERATOR Primary Care Provider [phone] Xochilt Persaud LINK AND LINK KNITTING MACHINE OPERATOR Primary Care Provider [phone] Lesley Gilbert VESSEL LINER Primary Care Provider [phone] Reason for Visit * Reason Onset Date Comments PT1 06/26/2022 Encounter Details Date Type Department Care Team (Late st Contact Info) Description 06/26/2022 Telephone [facility] [address] [place] [address] Jaelyn Garcia FNP [address] [place] [address] [place] [address] PT1 Social History Tobacco Use Types Packs/Day Years Used Date Smoking Tobacco: Never Assessed Comments Unknown Sex and Gender Information Value Date Recorded Sex Assigned at Female 03/23/2022 10:19 AM EDT Legal Sex Female 10:19 AM EDT Gender Identity Female 03/23/2022 10:19 AM EDT Sexual Orientation Straight 03/23/2022 10 :19 AM EDT documented as of this encounter Miscellaneous Notes * Telephone Encounter - Ramy Peoples - 06/26/2022 10:47 AM EST Tc from pt requesting 3 PT1 PT1: *Location: [facility], [address] [place] [id number] Specialty: Coloscopy Time: 9:45 am Date: July 01, 2022 Contracts Law Professor: Gary Awan *Location: [facility], [address] [place] [id number] Specialty: Coloscopy Follow up Time: 9:00 am Date: July 15, 2022 Contracts Law Professor: Gary Awan *Location: [facility], [address] [place] [id number] Specialty: Cancer Ovary FU Time: 10:45 am Date: July 06, 2022 Contracts Law Professor: Gary Awan Please contact pt at [phone] documented in this encounter Plan of Treatment Not on file documented as of this encounter Visit Diagnoses Not on filedocumented in this encounter Care Teams Pantographer Relationship Specialty Start Date End Date Jaelyn Garcia FNP PCP - General Family Medicine 01/16/22 02/25/23 Janeth Parrish NP [address] [place] [address] PCP - General Family Medicine 02/26/23 06/23/23 Xochilt Persaud NP [address] [place] [address] PCP - General Family Medicine 06/24/23 03/13/24 Lesley Gilbert FNP [address] [place] [id number] PCP - General Family Medicine 03/14/24 documented as of this encounter
--- OUTSIDE RECORDS SUMMARY | 2024-09-22 14:39 | XMS_ITS | Encounter Summary ---
Author Organization [employer] Address [address] [facility] 7t [place] [address] Care Team Providers Care Spot Checker Name Role Phone Xochilt Persaud NP Primary Care Provider [phone] Lesley Gilbert Primary Care Provider [phone] Reason for Visit * Reason Comments Med Refill Encounter Details Date Type Department Care Team (Late st Contact Info) Description 07/19/2023 Refill [facility] MED & PEDS [address] [place], [place] [phone] Xochilt Persaud NP [address] [place] [address] Social History Tobacco Use Types Packs/Day Years Used Date Smoking Tobacco: Never Smokeless Tobacco: Never Alcohol Use Standard Drinks/Week Comments Never 0 (1 standard drink = 0.6 oz pur e alcohol) Depression Answer Date Recorded Patient Health Questionnaire-9 Score 0 03/10/2023 Patient Health Questionnaire-9 Score 0 03/10/2023 Last PHQ-9: Questionnaire Data Not on file 1 Depression Answer Date Recorded Patient Health Questionnaire-2 Score 0 03/10/2023 Comments Unknown Sex and Gender Information Value Date Recorded Sex Assigned at Female 03/23/2022 10:19 AM EDT Legal Sex Female 10:19 AM EDT Gender Identity Female 03/23/2022 10:19 AM EDT Sexual Orientation Straight 03/23/2022 10 :19 AM EDT documented as of this encounter Plan of Treatment Not on file documented as of this encounter Visit Diagnoses Not on filedocumented in this encounter Additional Health Concerns Assessment Noted Time PHQ-9 Depression Total Score: 0 03/10/20 9:53 AM EDT documented as of this encounter Care Teams Spot Checker Relationship Specialty Start Date End Date Xochilt Persaud NP [address] [place] [address] PCP - General Family Medicine 06/24/23 03/13/24 Lesley Gilbert FNP [address] [place] [address] PCP - General Family Medicine 03/14/24 documented as of this encounter
--- OUTSIDE RECORDS SUMMARY | 2024-09-22 14:39 | XMS_ITS | Encounter Summary ---
Author Organization [facility] [facility] Address [address] [place] [address] 7 [place] [address] Care Team Providers Care Systems Tester Name Role Phone Jaelyn Garcia Primary Care Provider [phone] Janeth Parrish NP Primary Care Provider [phone] Xochilt Persaud LEGEND MAKER Primary Care Provider [phone] Lesley Gilbert Primary Care Provider [phone] Reason for Visit * Reason Comments Med Refill Encounter Details Date Type Department Care Team (Late st Contact Info) Description 11/24/2022 Refill [facility] [address] [place] [address] Jaelyn Garcia FNP [address] [place] [address] Dept [place] [address] Allergic reaction, sequela Social History Tobacco Use Types Packs/Day Years [...] documented as of this encounter Visit Diagnoses Diagnosis Allergic reaction, sequela documented in this encounter Care Teams Systems Tester Relationship Specialty Start Date End Date Jaelyn Garcia FNP PCP - General Family Medicine 01/16/22 02/25/23 Janeth Parrish NP [address] [place] [address] PCP - General Family Medicine 02/26/23 06/23/23 Xochilt Persaud NP [address] [place] [address] PCP - General Family Medicine 06/24/23 03/13/24 Lesley Gilbert FNP [address] [place] [address] PCP - General Family Medicine 03/14/24 documented as of this encounter
--- OUTSIDE RECORDS SUMMARY | 2024-09-22 14:39 | XMS_ITS | Encounter Summary ---
Author Organization [facility] Address [address] [place] [address] 7t [place] [address] Care Team Providers Care Shellfish Meat Separator Operator Name Role Phone Janeth Parrish NP Primary Care Provider [phone] Xochilt Persaud CYLINDER SANDER OPERATOR Primary Care Provider [phone] Lesley Gilbert CONTINUOUS PROCESS COFFEE ROASTER Primary Care Provider [phone] Reason for Visit * Reason Onset Date Comments Med Refill 05/20/2023 Encounter Details Date Type Department Care Team ([facility] st Contact Info) Description 05/20/2023 Telephone [facility] [address] [place], [place] [phone] Janeth Parrish NP [address] [place], [place] [phone] Med Refill Social History Tobacco Use Types Packs/Day Years [...] encounter Miscellaneous Notes * Telephone Encounter - Lety Navarro LPN - 05/20/2023 11:27 AM EST Atorvastatin was sent to [facility] #[id number] on 02/02/23 with 1 refill other medication pended to PCP. * Telephone Encounter - Denise Lomas - 05/20/2023 10:58 AM EST TC from pt requesting medication refill. Medications needing refill : hydrOXYzine HCl (Atarax) 25 MG tablet topiramate (Topamax) 25 MG tablet atorvastatin (Lipitor) 20 MG tablet To be sent to: [facility]/pharmacy #[id number] - [address] documented in this encounter Plan of Treatment Not on file documented as of this encounter Visit Diagnoses Not on filedocumented in this encounter Additional Health Concerns Assessment Noted Time PHQ-9 Depression Total Score: 0 03/10/20 9:53 AM EDT documented as of this encounter Care Teams Shellfish Meat Separator Operator Relationship Specialty Start Date End Date Janeth Parrish NP [address] [place] [address] PCP - General Family Medicine 02/26/23 06/23/23 Xochilt Persaud NP [address] [place] [address] PCP - General Family Medicine 06/24/23 03/13/24 Lesley Gilbert FNP [address] [place] [address] PCP - General Family Medicine 03/14/24 documented as of this encounter
--- OUTSIDE RECORDS SUMMARY | 2024-09-22 14:39 | XMS_ITS | Encounter Summary ---
Author Organization [employer] [facility] Address [address] [facility] 7t [place] [address] Care Team Providers Care Loan Coordinator Name Role Phone Lesley Gilbert CLERICAL CLERK Primary Care Provider [phone] Encounter Details Date Type Department Care Team ([facility] st Contact Info) Description 06/06/2024 Orders Only [facility] MED[facility] [address] [place] [address] Lesley Gilbert FNP [address] [place] [address] Social History Tobacco Use Types Packs/Day Years [...] Time PHQ-9 Depression Total Score: 0 03/10/20 23 9:53 AM EDT documented as of this encounter Care Teams Loan Coordinator Relationship Specialty Start Date End Date Lesley Gilbert FNP [address] [place] [address] PCP - General Family Medicine 03/14/24 documented as of this encounter
--- OUTSIDE RECORDS SUMMARY | 2024-09-22 14:39 | XMS_ITS | Encounter Summary ---
Author Organization [employer] Address [address] [place] [address] 7t [place] [address] Care Team Providers Care Mask Designer Name Role Phone Jose, Jaelyn Wild SYSTEM ADMINISTRATION ADVISOR Primary Care Provider [phone] Janeth Parrish DIRECTOR OPERATIONS BROADCAST Primary Care Provider [phone] Xochilt Persaud DIRECTOR OPERATIONS BROADCAST Primary Care Provider [phone] Lesley Gilbert SYSTEM ADMINISTRATION ADVISOR Primary Care Provider [phone] Encounter Details Date Type Department Care Team (Late st Contact Info) Description 10/22/2022 Orders Only [facility] CH[facility] MED & PEDS [address] [place] [address] Lety Navarro LPN Social History Tobacco Use Types Packs/Day Years [...] on file documented as of this encounter Procedures Procedure Name Priority Date/Time Associated Diagnosis Comments CULTURE, URINE, ROUTINE Routine 07/27/2023 12:30 PM EST documented in this encounter Results * Culture, Urine, Routine (07/27/2023 12:30 PM EST) Urine Urine specimen obtained by clean catch procedure / Unknown 07/27/2023 12:30 PM EST 07/27/2023 3:59 PM EST Comment:UACC Narrative [facility] - 07/29/2023 12:11 PM EST Urine Culture No growth. Specimen Source: Urine clean catch us Generic External Data Provider LAB MICROBIOLOGY - GENERAL ORDERABLES Final Result [facility] [address] [place] [address] [phone] documented in this encounter Visit Diagnoses Not on filedocumented in this encounter Care Teams Mask Designer Relationship Specialty Start Date End Date Jaelyn Garcia FNP PCP - General Family Medicine 01/16/22 02/25/23 Janeth Parrish NP [address] [place] [address] PCP - General Family Medicine 02/26/23 06/23/23 Xochilt Persaud NP [address] [place] [address] PCP - General Family Medicine 06/24/23 03/13/24 Lesley Gilbert FNP [address] [place] [address] PCP - General Family Medicine 03/14/24 documented as of this encounter
--- OUTSIDE RECORDS SUMMARY | 2024-09-22 14:39 | XMS_ITS | Encounter Summary ---
Author Organization [employer] Address [address] [facility] 7t [place] [address] Care Team Providers Care Community Center Director Name Role Phone Xochilt Persaud NP Primary Care Provider [phone] Lesley Gilbert Primary Care Provider [phone] Reason for Visit * Reason Comments Med Refill Encounter Details Date Type Department Care Team (Late st Contact Info) Description 11/13/2023 Refill [facility] CHC MED & PEDS [address] [place], [place] [phone] Xochilt Persaud NP [address] [place] [address] Social History Tobacco Use Types Packs/Day Years [...] documented as of this encounter Care Teams Community Center Director Relationship Specialty Start Date End Date Xochilt Persaud NP [address] [place] [address] PCP - General Family Medicine 06/24/23 03/13/24 Lesley Gilbert FNP [address] [place] [address] PCP - General Family Medicine 03/14/24 documented as of this encounter
--- OUTSIDE RECORDS SUMMARY | 2024-09-22 14:39 | XMS_ITS | Clinical Summary ---
Author Organization [employer] Address [address] [place] [address] 7 [place] [address] Care Team Providers Care Biology Department Chair Name Role Phone Lesley Gilbert PATIENT CARE SPECIALIST Primary Care Provider [phone] Allergies Active Allergy Reactions Criticality Noted Date Comments Cetirizine Palpitations Low 12/20/2020 Cyclobenzaprine 12/30/2011 Oxybutynin 09/28/2013 Senna 04/15/2021 Other reaction(s): Rash, Rash Zoster Vac Recomb Adjuvanted 023 Hives Tolterodine 09/07/2013 Other reaction(s): Rash Trospium 09/28/2013 Other reaction(s): Hives / Skin Rash Medications EPINEPHrine (Epipen) 0.3 MG/0.3ML injection syringeIndicat ions:Allergic reaction, sequela INJECT 0.3 ML INTRAMUSCULARLY ONCE NEEDED FOR ANAPHYLAXIS 2 each 023 Active cholecalcifero l (Vitamin D-3) 50 MCG (1999) capsule take 2 capsule by oral route every day 180 capsule 024 Active lidocaine (Lidoderm) 5 % patch APPLY 1 PATCH BY TRANSDERMAL ROUTE EVERY DAY (MAY WEAR UP TO 12HOURS.) FOR ABDOMINAL PAIN 30 patch 2 024 Active hydrOXYzine HCl (Atarax) 25 MG tablet TAKE 1 TABLET BY MOUTH EVERY 8 HOURS NEEDED FOR ITCHING 30 tablet 024 Active atorvastatin (Lipitor) 20 MG tablet TOME CHRISTY TABLETA TODOS [place] RAMOS 90 tablet 025 Active omeprazole (PriLOSEC) [address] capsule TOME CHRISTY CAPSULA TODOS [place] RAMOS 30 MINS ANTES DE COMER 90 capsule 025 Active topiramate (Topamax) 25 MG tabletIndicati ons:Migraine without status migrainosus, not intractable, unspecified migraine type TAKE 2 TABLETS BY MOUTH EVERY DAY FOR A TOTAL OF 50MG DAILY 60 tablet 3 025 Active Linzess 290 MCG capsule Take 1 capsule (290 mcg) by mouth in the morning. 30 capsule 3 Active triamcinolone (Kenalog) 0.1 % cream Apply topically if needed in the morning and at bedtime (pain and swelling). 30 g 2 Active atorvastatin (Lipitor) 20 MG tablet TOME CHRISTY TABLETA TODOS [place] RAM[place] 90 tablet 024 2024 Discontinued(R eorder (will not trigger notification to Pharmacy)) omeprazole (PriLOSEC) [address] capsule TOME CHRISTY CAPSULA TODOS [place] RAM[place] 30 MINS ANTES DE COMER 90 capsule 024 2024 Discontinued(R eorder (will not trigger notification to Pharmacy)) topiramate (Topamax) 25 MG tabletIndicati ons:Migraine without status migrainosus, not intractable, unspecified migraine type TAKE 2 TABLETS BY MOUTH EVERY DAY FOR A TOTAL OF 50MG DAILY 60 tablet 3 024 2024 Discontinued(R eorder (will not trigger notification to Pharmacy)) Linzess 290 MCG capsule Take 1 capsule by mouth in the morning. 024 2024 Discontinued(R eorder (will not trigger notification to Pharmacy)) triamcinolone (Kenalog) 0.1 % cream Apply topically if needed in the morning and at bedtime (pain and swelling). 30 g 2 024 2024 Discontinued(R eorder (will not trigger notification to Pharmacy)) Active Problems Problem Noted Date Diagnosed Date History of allergic urticaria 03/10/2023 Carpal tunnel syndrome 03/09/2023 Hypercholesterolemia 03/09/2023 03/09/2023 Intraductal papilloma of right breast 03/09/2023 03/09/2023 Postmenopausal bleeding 03/17/2022 03/09/20 23 Constipation 04/19/2021 03/09/2023 Gastroesophageal reflux disease 01/08/2015 03/09/2023 Overweight 09/07/2013 03/09/2023 Allergic rhinitis 03/17/2012 03/09/2023 Chronic neck pain 03/17/2012 03/09/2023 Depressive disorder 03/17/2012 03/09/2023 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 unable to reach [facility] ) 08/22/[address] [address] Lesley Gilbert FNP TP APPT 08/22/[address] [address] Lesley Gilbert FNP Appointment Request 08/22/[address] [address] Lesley Gilbert FNP PT1 08/01/2024 Refill [facility] [address] [place] [address] Romana Damon MD from Last 3 Months Immunizations Name Administration Dates Next Due Hep B, adult 02/01/2007,08/19/2006,07/20/2006 Influenza injectable quadriv alent IIV4 with preservative 02/05/2015 Influenza injectable quadriv alent preservative free 03/10/2023,03/05/2022 Influenza, IIV3, injectable 01/22/2011, 9 Influenza, Split (incl. josy fied surface antigen) 03/15/2013,03/17/2012 Moderna Covid-19 Vaccine 12+ 05/04/2021 Pfizer Covid-19 Vaccine 12+ 10/11/2020, 1 TD (adult), 2 Lf tetanus tox oid, preservative free, adsorbed 03/05/2022,02/01/2007 Tdap 09/25/2011 Zoster, Recombinant 12/19/2023,11/25/2022 Family History Medical History Relation Name Comments Asthma Mother Diabetes Mother Hyperlipidemia Mother Hypertension Mother uterus ca Mother Fibroids Sister Mental illness Son Relation Name Status Comments Mother Sister Son Social History Tobacco Use Types Packs/Day Years Used Date Smoking Tobacco: Never Passive Smoke Exposure: Never Smokeless Tobacco: Never Tobacco Cessation:Counseling Given: Not Answered Alcohol Use Standard Drinks/Week Comments Never 0 [...] Orientation Straight 03/23/2022 10 :19 AM EDT Last Filed Vital Signs Vital Sign Reading Time Taken Comments Blood Pressure 119/85 09/22/2024 1:16 PM EDT Pulse 97 09/22/2024 1:16 PM EDT Temperature 37.1 ??C (98.7 ??F) 09/22/2024 1:16 PM ED T Respiratory Rate 16 09/22/2024 1:16 PM EDT Oxygen Saturation 98% 09/22/2024 1:16 PM EDT Inhaled Oxygen Concentration - - Weight 70.8 kg (156 lb 2 oz) 09/22/2024 1:16 PM EDT Height 152.4 cm (5') 09/22/2024 1:16 PM EDT Body Mass Index 30.49 09/22/2024 1:16 PM EDT Plan of Treatment Health Maintenance Due Date Last Done Comments CT Colonography 1972 FIT DNA/Cologuard 1972 FIT 1972 FOBT 1972 HIV Screening 1972 SDOH Screening 1972 Sigmoidoscopy 1972 Family Planning (PISQ) 01/30/1987 Hepatitis C Screening 01/30/1990 Pneumococcal Vaccine: 50+ Years (1 of 1 - PCV) 01/30/2022 Mammogram 04/03/2023 04/03/2022, 03/24, 04/14/2021, Additional history exists COVID-19 Vaccine ( season) 2024 05/04/2021, 10/11/2020, 09/19/2020 Influenza Vaccine (#1) 2024 , 03/05/2022, 02/05/2015, Additional history exists Depression Screening 03/10/2024 03/10/2023, 03/10/20 23 Cervical Cancer Screening 07/30/2025 HPV/Cotest 07/30/2025 07/30/2020, 03/0 01/2021, 07/30/2020, Additional history exists Pap Smear 07/30/2025 07/30/2020 Alcohol/Substance Use Screening 09/22/2025 09/22/2024 Tobacco Screening 09/22/2025 09/22/2024 Colonoscopy 07/01/2027 07/01/2022 Colorectal Cancer Screening 07/01/2027 DTaP/Tdap/Td Vaccines (3 - Td or Tdap) 03/05/2032 03/05/2022, 09/25/2011, 02/01/2007 RSV Patients and Patients Aged 60 years or older (1 - 1-dose 75+ series) 01/30/2047 Hepatitis B Vaccines Completed 02/01/2007, 08/19/2006, 07/20/2006 Zoster Vaccines Completed 12/19/2023, 11/25/2022 HIB Vaccines Aged Out No longer eligi ble based on patient's age to complete this topic HPV Vaccines Aged Out No longer eligi ble based on patient's age to complete this topic Hepatitis A Vaccines Aged Out No long er eligible based on patient's age to complete this topic IPV Vaccines Aged Out No longer eligi ble based on patient's age to complete this topic Meningococcal Vaccine Aged Out No ryland jaci eligible based on patient's age to complete this topic RSV under 20 months Aged Out No longe r eligible based on patient's age to complete this topic Rotavirus Vaccines Aged Out No longer eligible based on patient's age to complete this topic Procedures Procedure Name Priority Date/Time Associated Diagnosis Comments COLONOSCOPY Routine 07/01/2022 MAMMOGRAPHY Routine 04/03/2022 PAP/HPV Routine 07/30/2020 from Last 3 Months or Most Recently Relevant to Health Maintenance Results * Colonoscopy (07/01/2022) Colonoscopy Normal Normal [facility] Provider HEALTH MAINTENANCE Final Result * (ABNORMAL) Mammography (04/03/2022) Mammogram bi-rads 2 Anatomical Region Laterality Modality Other [facility] External Provider HEALTH MAINTENANCE Final Result * Pap Smear (07/30/2020) Pap Negative for intraephithelial lesion or malignancy Negative for intraephithelial lesion or malignancy, Other HPV Undetected [facility] Provider HEALTH MAINTENANCE Final Result from Last 3 Months or Most Recently Relevant to Health Maintenance Insurance [employer] [facility] Care Teams Biology Department Chair Relationship Specialty Start Date End Date Lesley Gilbert FNP [address] [place] [address] PCP - General Family Medicine 03/14/24
--- OUTSIDE RECORDS SUMMARY | 2024-09-22 14:39 | XMS_ITS | Encounter Summary ---
Author Organization [employer] [facility] Address [address] [place] [address] 7 [place] [address] Care Team Providers Care Concrete Boom Pump Operator Name Role Phone Lesley Gilbert Primary Care Provider [phone] Reason for Visit * Reason Onset Date Comments Appointment Request 08/22/2024 Encounter Details Date Type Department Care Team ([facility] Contact Info) Description 08/22/2024 Telephone [facility] MEDICINE [address] [place] [address] Lesley Gilbert FNP [address] [place] [address] Appointment Request Social History Tobacco Use Types Packs/Day Years [...] encounter Miscellaneous Notes * Telephone Encounter - Nelda Bowman - 08/22/2024 1:05 PM EDT Tc from pt requesting schedule appointment with pcp. [phone] greek documented in this encounter Plan of Treatment Not on file documented as of this encounter Visit Diagnoses Not on filedocumented in this encounter Additional Health Concerns Assessment Noted Time PHQ-9 Depression Total Score: 0 03/10/20 9:53 AM EDT documented as of this encounter Care Teams Concrete Boom Pump Operator Relationship Specialty Start Date End Date Lesley Gilbert FNP [address] [place] [address] PCP - General Family Medicine 03/14/24 documented as of this encounter
--- OUTSIDE RECORDS SUMMARY | 2024-09-22 14:39 | XMS_ITS | Encounter Summary ---
Author Organization [facility] Address [address] [place] [address] 7 [place] [address] Care Team Providers Care In Class Special Education Teacher Name Role Phone Lesley Gilbert DETECTIVE AUTOMOBILE SECTION Primary Care Provider Reason for Visit * Reason Onset Date Comments Chart Prep 09/20/2024 Encounter Details Date Type Department Care Team ([facility] st Contact Info) Description 09/20/2024 Telephone [facility] MEDICINE [address] [place] [address] Yany Green [place] Chart Prep Social History Tobacco Use Types Packs/Day Years [...] encounter Miscellaneous Notes * Telephone Encounter - Yany Green MA - 09/20/2024 11:26 AM EDT Chart Prep Labs: not applicable Images: not applicable Referrals: not applicable Vaccines due: Covid, Flu, PCV20 Screenings: mammogram and HIV, Hep C, Cervical Cancer Overdue care gaps: SBIRT, SDOH, PHQ-9, ANDRES-7, Oral health screening, Disability screen, and Tobacco documented in this encounter Plan of Treatment Not on file documented as of this encounter Visit Diagnoses Not on filedocumented in this encounter Additional Health Concerns Assessment Noted Time PHQ-9 Depression Total Score: 0 03/10/20 23 9:53 AM EDT documented as of this encounter Care Teams In Class Special Education Teacher Relationship Specialty Start Date End Date Lesley Gilbert FNP [address] [place] [address] PCP - General Family Medicine 03/14/24 documented as of this encounter
--- OUTSIDE RECORDS SUMMARY | 2024-09-22 14:39 | XMS_ITS | Encounter Summary ---
Author Organization [employer] [facility] Address [address] [place] [address] 7t [place] [address] Care Team Providers Care Inspector Precision Name Role Phone Lesley Gilbert LCAC OPERATOR Primary Care Provider [phone] Encounter Details Date Type Department Care Team ([facility] st Contact Info) Description 09/22/2024 1:00 PM EDT Office Visit [facility] [address] [place] [address] Lesley Gilbert FNP [address] [place] [address] Adult wellness visit (Primary Dx); Migraine without status migrainosus, not intractable, unspecified migraine type Social History Tobacco Use Types Packs/Day Years [...] AM EDT documented as of this encounter Last Filed Vital Signs Vital Sign Reading [...] Mass Index 30.49 09/22/2024 1:16 PM EDT documented in this encounter Plan of Treatment Scheduled Orders Name Type Priority Associated Diagnoses Orde r Schedule Basic Metabolic Panel Lab Routine Adult Wellness Visit Expected: 09/22/2024 (Approximate), Expires: 09/21/2025 CBC Lab Routine Adult wellness visit Expected: 09/22/2024, Expires: 09/21/2025 Chlamydia/N. Gonorrhoeae RNA, TMA, Urine Microbiology Routine Adult wellness visit Expected: 09/22/2024 (Approximate), Expires: 09/21/2025 Hepatitis B Core Antibody, Total Lab Routine Adult wellness visit Expected: 09/22/2024 (Approximate), Expires: 09/21/2025 Hepatitis B Surface Antibody, Qualitative Lab Routine Adult wellness visit Expected: 09/22/2024 (Approximate), Expires: 09/21/2025 Hepatitis B surface antigen, EIA Lab Routine Adult wellness visit Expected: 09/22/2024 (Approximate), Expires: 09/21/2025 Hepatitis C Antibody with Reflex to HCV, RNA, Quantitative, Real-Time PCR Lab Routine Adult wellness visit Expected: 09/22/2024 (Approximate), Expires: 09/21/2025 HIV-1/2 Antigen and Antibodies, Fourth Generation, with Reflexes Lab Routine Adult wellness visit Expected: 09/22/2024 (Approximate), Expires: 09/21/2025 Lipid Panel, Standard Lab Routine Adult wellness visit Expected: 09/22/2024 (Approximate), Expires: 09/21/2025 Hemoglobin A1c Lab Routine Adult wellness visit Expected: 09/22/2024 (Approximate), Expires: 09/22/2025 Urinalysis Complete Lab Routine Adult wellness visit Expected: 09/22/2024, Expires: 09/22/2025 B Type Natriuretic Peptide (BNP) Lab Routine Adult wellness visit Expected: 09/22/2024, Expires: 09/22/2025 Albumin, Random Urine W/Creatinine Lab Routine Adult wellness visit Expected: 09/22/2024 (Approximate), Expires: 09/22/2025 Urine Culture Routine Microbiology Routine Adult wellness visit Ordered: 09/22/2024 documented as of this encounter Visit Diagnoses Diagnosis Adult wellness visit- Primary Migraine without status migrainosus, not intractable, unspecified migraine type documented in this encounter Additional Health Concerns Assessment Noted Time PHQ-9 Depression Total Score: 0 03/10/20 23 9:53 AM EDT documented as of this encounter Care Teams Inspector Precision Relationship Specialty Start Date End Date Lesley Gilbert FNP [address] [place] [address] PCP - General Family Medicine 03/14/24 documented as of this encounter
--- OUTSIDE RECORDS SUMMARY | 2024-09-22 14:39 | XMS_ITS | Encounter Summary ---
Author Organization [employer] Address [address] [facility] 7t [place] [address] Care Team Providers Care Ride Assembly Supervisor Name Role Phone Lesley Gilbert TIN DIPPER Primary Care Provider Reason for Visit * Reason Comments Med Refill Encounter Details Date Type Department Care Team ([facility] st Contact Info) Description 06/02/2024 Refill [facility] [address] [place] [address] Xochilt Persaud, NOE [address] [place] [address] Migraine without status migrainosus, not intractable, unspecified [...] as of this encounter Visit Diagnoses Diagnosis Migraine without status migrainosus, not intractable, unspecified migraine type documented in this encounter Additional Health Concerns Assessment Noted Time PHQ-9 Depression Total Score: 0 10/18/20 23 9:53 AM EDT documented as of this encounter Care Teams Ride Assembly Supervisor Relationship Specialty Start Date End Date Lesley Gilbert FNP [address] [place] [address] PCP - General Family Medicine 03/14/24 documented as of this encounter
--- OUTSIDE RECORDS SUMMARY | 2024-09-22 14:39 | XMS_ITS | Encounter Summary ---
Author Organization [employer] [facility] Address [address] [place] [address] 7t [place] [address] Care Team Providers Care Diamond Driller Helper Name Role Phone Lesley Gilbert Primary Care Provider [phone] Encounter Details Date Type Department Care Team (Latest Contact Info) Description 09/22/2024 Travel Social History Tobacco Use Types Packs/Day Years Used Date Smoking Tobacco: Never Passive Smoke Exposure: Never Smokeless Tobacco: Never Alcohol Use Standard [...] documented as of this encounter Care Teams Diamond Driller Helper Relationship Specialty Start Date End Date Lesley Gilbert FNP [address] [place] [address] PCP - General Family Medicine 03/14/24 documented as of this encounter
--- OUTSIDE RECORDS SUMMARY | 2024-09-22 14:39 | XMS_ITS | Encounter Summary ---
Author Organization [employer] [facility] Address [address] [place] [address] 7t [place] [address] Care Team Providers Care Laminator Preforms Name Role Phone Jaelyn Garcia PROMOTIONS EXECUTIVE PRODUCER Primary Care Provider [phone] Janeth Parrish STONE AND CONCRETE WASHER Primary Care Provider [phone] Xochilt Persaud STONE AND CONCRETE WASHER Primary Care Provider [phone] Lesley Gilbert PROMOTIONS EXECUTIVE PRODUCER Primary Care Provider [phone] Encounter Details Date Type Department Care Team (Late st Contact Info) Description 02/24/2023 Abstract [facility] [address] [place] [address] Marivel Mandujano Social History Tobacco Use Types Packs/Day Years [...] Date/Time Associated Diagnosis Comments COLONOSCOPY Routine 07/01/2022 PAP/HPV Routine 07/30/2020 documented in this encounter Results * Colonoscopy (07/01/2022) Colonoscopy Normal Normal Historical Provider HEALTH MAINTENANCE Final Result * Pap Smear (07/30/2020) Pap Negative for intraephithelial lesion or malignancy Negative for intraephithelial lesion or malignancy, Other HPV Undetected us Historical Provider HEALTH MAINTENANCE Final Result documented in this encounter Visit Diagnoses Not on filedocumented in this encounter Care Teams Laminator Preforms Relationship Specialty Start Date End Date Jaelyn Garcia FNP PCP - General Family Medicine 01/16/22 02/25/23 Janeth Parrish NP [address] [place] [address] PCP - General Family Medicine 02/26/23 06/23/23 Xochilt Persaud NP [address] [place] [address] PCP - General Family Medicine 06/24/23 03/13/24 Lesley Gilbert FNP [address] [place] [address] PCP - General Family Medicine 03/14/24 documented as of this encounter
--- OUTSIDE RECORDS SUMMARY | 2024-09-22 14:39 | XMS_ITS | Encounter Summary ---
Author Organization [employer] Address [address] [facility] 7t [place] [address] Care Team Providers Care Geomagnetician Name Role Phone Xochilt Persaud NP Primary Care Provider [phone] Lesley Gilbert Primary Care Provider [phone] Reason for Visit * Reason Comments Med Refill Encounter Details Date Type Department Care Team (Late st Contact Info) Description 08/09/2023 Refill [facility] [address] [place] [address] Xochilt Persaud NP [address] [place] [address] Social History Tobacco Use Types Packs/Day Years [...] documented as of this encounter Care Teams Geomagnetician Relationship Specialty Start Date End Date Xochilt Persaud NP [address] [place] [address] PCP - General Family Medicine 06/24/23 03/13/24 Lesley Gilbert FNP [address] [place] [address] PCP - General Family Medicine 03/14/24 documented as of this encounter
--- OUTSIDE RECORDS SUMMARY | 2024-09-22 14:39 | XMS_ITS | Encounter Summary ---
Author Organization [employer] Address [address] [facility] [address] 7t [place] [address] Care Team Providers Care Labor And Delivery Registered Nurse Name Role Phone Lesley Gilbert HOTEL OR MOTEL RECEPTIONIST Primary Care Provider [phone] Reason for Visit * Reason Comments Med Refill Encounter Details Date Type Department Care Team ([facility] st Contact Info) Description 08/01/2024 Refill [facility] [address] [place] [address] Romana Damon MD [address] [place] [address] Social History Tobacco Use Types Packs/Day Years [...] documented as of this encounter Care Teams Labor And Delivery Registered Nurse Relationship Specialty Start Date End Date Lesley Gilbert FNP [address] [place] [address] PCP - General Family Medicine 03/14/24 documented as of this encounter
--- OUTSIDE RECORDS SUMMARY | 2024-09-22 14:39 | XMS_ITS | Encounter Summary ---
Author Organization [facility] Address [address] [place] [address] 7t [place] [address] Care Team Providers Care Regulatory Affairs Intern Name Role Phone Jose, Jaelyn Wild CONDUCTOR AND ENGINEER Primary Care Provider [phone] Janeth Parrish SUPERVISOR FRAME SAMPLE AND PATTERN Primary Care Provider [phone] Xochilt Persaud SUPERVISOR FRAME SAMPLE AND PATTERN Primary Care Provider [phone] Lesley Gilbert CONDUCTOR AND ENGINEER Primary Care Provider [phone] Encounter Details Date Type Department Care Team (Late st Contact Info) Description 06/03/2022 Orders Only [facility] [address] [place] [address] Rae Villagran LPN Social History Tobacco Use Types Packs/Day [...] Procedure Name Priority Date/Time Associated Diagnosis Comments CA 125 Routine 06/03/2022 11:00 AM EST documented in this encounter Results * CA 125 (06/03/2022 11:00 AM EST) CA 125 27 <35 U/mL [facility] Comment:This test was perfor med using the SiemensChemiluminescent method. Values obtained fromdifferent assay methods cannot be usedinterchangeably. CA 125 levels, regardless ofvalue, should not be interpreted as absoluteevidence of the presence or absence of disease.THIS TEST WAS PERFORMED AT:[email or web address] [address])[place] [address]NHTKBSTAR BLANCHARD MD 06/03/2022 11:0 0 AM EST 06/03/2022 11:00 AM EST [facility] External Provider LAB BLO OD ORDERABLES Final Result [facility] [address] [place] [address] [phone] documented in this encounter Visit Diagnoses Not on filedocumented in this encounter Care Teams Regulatory Affairs Intern Relationship Specialty Start Date End Date Jaelyn Garcia FNP PCP - General Family Medicine 01/16/22 02/25/23 Janeth Parrish NP [address] [place] [address] PCP - General Family Medicine 02/26/23 06/23/23 Xochilt Persaud NP [address] [place] [address] PCP - General Family Medicine 06/24/23 03/13/24 Lesley Gilbert FNP [address] [place] [address] PCP - General Family Medicine 03/14/24 documented as of this encounter
[2024-09-22 16:07] LABS: Appearance Urine Clear; Color Urine Yellow; Glucose Urine UA Negative (Negative); Leukocyte Esterase Urine Negative (Negative); Nitrite Urine Negative (Negative); Urine Blood Negative (Negative); Urine Ketones Negative (Negative); Urine Protein Negative (Neg-Trace)
[2024-09-22 16:18] LABS: Bacteria Urine Trace (None Seen); WBC Urine 0-5 /HPF (0-5)
[2024-09-22 16:19] LABS: Hematocrit 38.4 % (37.0-47.0); Hemoglobin 12.4 g/dl (12.0-16.0); Mean Corpuscular HGB Conc 32.3 g/dl (31.0-35.0); Mean Corpuscular Hemoglobin 28.1 pg (27.0-33.0); Mean Corpuscular Volume 87.1 fL (80.0-98.0); Platelet Count 276 X10*3/uL (160-400); Red Blood Count 4.41 X10*6/uL (4.20-5.50); Red Cell Distribution Width 12.6 % (11.0-16.0); White Blood Count 10.2 X10*3/uL (4.8-10.8)
[2024-09-22 16:23] LABS: Estimated Average Glucose 103 mg/dL; Hemoglobin A1C 110.9571 umol/L; Hemoglobin A1c % 5.2 % (<6.0); Total Hemoglobin (HGBA1C) 3312.1897 umol/L
[2024-09-22 16:27] LABS: Anion Gap 11 (12-20); Blood Urea Nitrogen 12 mg/dL (9-16); Carbon Dioxide 27 mmol/L (22-29); Chloride 106 mmol/L (96-108); Cholesterol 192 mg/dL (<200); Estimated Glomerular Filt Rate > 60; Glucose Random 97 mg/dL (60-115); HDL Cholesterol 41 mg/dL (>40); LDL Cholesterol Calculated 115 mg/dL (<100); Potassium 3.8 mmol/L (3.3-5.1); Sodium 140 mmol/L (135-145); Triglycerides 183 mg/dL (<150)
[2024-09-22 16:37] LABS: Creatinine Urine 163.99 mg/dL
[2024-09-22 16:51] LABS: B Type Natriuretic Peptide 29 pg/mL (<100)
[2024-09-23 16:07] LABS: CT PCR NOT DETECTED (Not Detect.); NG PCR NOT DETECTED (Not Detect.)
[2024-09-25 04:46] LABS: HBS Num1 676.44 mIU/mL (0-7.99); HBc Num1 0.36 S/CO (0.00-0.79); HBsAGNum1 0.41 S/CO (0.00-0.99); HIV AB/AG Nonreactive (Nonreactive); HIV Num 1 0.32 S/CO (0.00-0.99); Hepatitis B Core Antibody Nonreactive (Nonreactive); Hepatitis B Surface Antigen Negative (Negative); ~HepC Num1 0.14 S/CO (0.00-0.79); ~Hepatitis B Surface Antibody REACTIVE (Nonreactive); ~Hepatitis C Antibody Nonreactive (Nonreactive)
== END 2024-09-22 14:30 | disposition home or self-care (01) ==
LOC: HO.HHCL 14:29
PROVIDERS: Visit Provider Nurse Practitioner Family
DX: Z00.00 Encounter for general adult medical examination without abnormal findings (principal); Z13.1 Encounter for screening for diabetes mellitus; Z13.6 Encounter for screening for cardiovascular disorders
CPT/HCPCS: 80048; 80061; 81001; 82043; 82570; 83036; 83880; 85027; 86704; 86706; 86803; 87086; 87147; 87340; 87389; 87491; 87591

== ENCOUNTER 2024-10-20 09:28 | Outpatient (REF) | payer MEDICAID, SELFPAY ==
[2024-10-21 03:54] LABS: CT PCR NOT DETECTED (Not Detect.); NG PCR NOT DETECTED (Not Detect.)
== END 2024-10-20 09:29 | disposition home or self-care (01) ==
LOC: HO.LNP 09:28
PROVIDERS: PCP Registered Nurse; Visit Provider Obstetrics & Gynecology
DX: Z01.419 Encounter for gynecological examination (general) (routine) without abnormal findings (principal); R10.2 Pelvic and perineal pain; R31.29 Other microscopic hematuria; Z78.0 Asymptomatic menopausal state
CPT/HCPCS: 81002; 87086; 87147; 87491; 87591; 99212; 99396; 99459

== ENCOUNTER 2024-10-20 09:28 | Outpatient (AMB) | payer MEDICAID, SELFPAY ==
[2024-10-20 09:33] VITALS: BMI 29.3
--- NOTE | 2024-10-20 09:33 | A.OFFVIS_ITS ---
Vital Signs 10/20/24 09:33 Height 5 ft 1 in Weight 155 lb BMI 29.3 Intake Visit Reasons: CAR HIKER annual exam Photovoltaic Installer Required: Yes Photovoltaic Installer Language: Dredge Pipe Installer Services: Photovoltaic Installer Present (in person) Photovoltaic Installer Name: Cynthia CALDWELL Information Interpreted: non-clinical & clinical Sand Sifter: Sand Sifter Present (Cynthia CALDWELL) Accompanied by: Self / Same As Patient Allergies senna [From Senokot] Allergy (Intermediate, Verified 10/20/24 09:34) Rash cyclobenzaprine Allergy (Unknown, Verified 10/20/24 09:34) Unknown oxybutynin Allergy (Unknown, Verified 10/20/24 09:34) Unknown tolterodine Allergy (Unknown, Verified 10/20/24 09:34) Unknown trospium Allergy (Unknown, Verified 10/20/24 09:34) Unknown Post menopausal: Yes HPI Comments Details: Presenting for annual exam. No complaints. Last Pap/HPV was negative in 08/11 Last Mammogram was in 04/14 BI-RADS 2 Last colonoscopy was in 07/16, the recommendation was to repeat in 5 years [facility] Medical History Tubular adenoma GERD (gastroesophageal reflux disease) Microscopic hematuria Lesion of right nipple OTIS (stress urinary incontinence, female) Renal stones Migraines High cholesterol Surgical History Hx of dilation and curettage History of excision of lesion History of endometrial ablation History of pubovaginal sling History of tubal ligation Family History Mother Uterine cancer Social History Household Members: Spouse and Children Housing: House Alcohol intake: never Patient Tobacco Use Status: Never used Tobacco service: No Current occupational status: unemployed Sexual orientation: Straight/Heterosexual Gender identity: Female Female Reproductive History Menstrual Age of Menarche: 12 Date of last pap smear: 07/31/20 Date of Mammogram: 04/03/22 Review of Systems Const All systems reviewed & are unremarkable except as noted in HPI and below Card Reports as per HPI Resp Reports as per HPI GI Reports as per HPI and Reports no additional complaints Reports as per HPI Physical Exam Vital Signs: BMI result Body Mass Index 29.3 Const General: cooperative, healthy appearing and comfortable Chest Chest palpation & inspection: normal inspection of the chest and normal palpation of entire chest wall Breast/axilla inspection: normal inspection of the breasts and normal inspection of the axillae Breast/axilla palpation: normal palpation of the breasts, normal palpation of the axillae and no axillary lymphadenopathy Resp Effort & Inspection: normal respiratory effort Auscultation: clear to auscultation bilaterally Percussion: percussion normal Cardio Palpation: normal PMI Rate: regular rate Rhythm: regular rhythm Heart sounds: no murmurs and no rubs Peripheral pulses: Peripheral pulses 2+ throughout GI Inspection: Yes normal to inspection Palpation (GI): Soft to palpation, nontender, no guarding, not rigid and No hepatosplenomegaly present Percussion: Yes normal to percussion Auscultation: normal bowel sounds Rectal Exam - Female: deferred General: Yes bladder normal to palpation External Female Exam: No lesion Speculum Exam - Vagina: normal appearance of the vagina, normal palpation, normal vaginal discharge and not erythematous Speculum Exam - Cervix: normal appearance of the cervix and normal palpation Bimanual exam- vagina & uterus: normal bimanual exam, normal palpation, uterine size normal, bladder normal to palpation, consistency normal and normal palpation Bimanual Exam- Adnexa, other: normal adnexae, no masses and no tenderness Results AMB Urinalysis Dipstick UR Leukocytes Negative Last Edit by Cynthia Cai CMA on 10/20/24 09:56 UR Nitrite Negative Last Edit by Cynthia Cai CMA on 10/20/24 09:56 UR Urobilinogen Normal Last Edit by Cynthia Cai CMA on 10/20/24 09:56 UR Protein Negative Last Edit by Cynthia Cai CMA on 10/20/24 09:56 UR Ph 6.0 Last Edit by Cynthia Cai CMA on 10/20/24 09:56 UR Blood Small Last Edit by Cynthia Cai CMA on 10/20/24 09:56 UR Specific Dale 1.030 Last Edit by Cynthia Cai CMA on 10/20/24 09:56 UR Ketone Negative Last Edit by Cynthia Cai CMA on 10/20/24 09:56 UR Bilirubin Last Edit by Cynthia Cai CMA on 10/20/24 09:56 UR Glucose Negative Last Edit by Cynthia Cai CMA on 10/20/24 09:56 Assessment & Plan Assessment & Plan (1) Well woman exam: Code(s): Z01.419 - Encounter for gynecological examination (general) (routine) without abnormal findings Category: Medical Plan: Cotesting not indicated this year. Mammogram ordered. Counseled the patient about the recommended dietary allowance of 1000 mg of Calcium & 600 IU of vitamin D. The patient was instructed to perform monthly self-breast exams and to schedule an annual exam in a year; All questions answered and the patient verbalized understanding. Instructed the patient to schedule annual exam in a year (2) Pelvic pain: Code(s): R10.2 - Pelvic and perineal pain Category: Medical Plan: Urine dip done in the office showed microscopic hematuria. GC and chlamydia taken and pelvic ultrasound ordered. Discussed with the patient the differential diagnosis of pelvic pain including but not limited to adnexal, uterine masses, pelvic infections (PID), GI the (Irritable bowel syndrome, diverticulitis, others), musculoskeletal, myofascial pain abdominal wall , adhesions, endometriosis, psychological and others causes. Will check results and treat accordingly. All questions answered, the patient verbalized understanding. Instructed the patient to schedule an ultrasound and a follow-up appointment in 2 weeks. All questions answered, the patient verbalized understanding and agreed with the plan. (3) Microscopic hematuria: Code(s): R31.29 - Other microscopic hematuria Category: Medical Plan: Urine dip showed microscopic hematuria, urine culture sent. Will repeat urine dip in 2 weeks. Discussed with the patient the possible causes of microscopic hematuria including but not limited to: interstitial cystitis, polyps, stones, masses, urethral inflammatory processes and others. If Urine Culture is negative and repeat urine dip in 2 weeks shows persistent microscopic hematuria, will proceed with CT abdomen/pelvis and urology referral. Instructions given the patient to schedule a 2 week urine dip follow-up appointment. All questions answered and the patient verbalized understanding. Orders: Orders AMB Urinalysis Dipstick Today R31.29 - Other microscopic hematuria US pelvic and transvaginal Today R10.2 - Pelvic and perineal pain MM tomosynthesis screening BI Today Z12.31 - Encounter for screening mammogram for malignant neoplasm of breast Coding Level of Care Code Est Pt Level 3 (68897) Est Pt Prev Care 40-64y(62760) Diagnoses Well woman exam Z01.419 Pelvic pain R10.2 Microscopic hematuria R31.29
--- OUTSIDE RECORDS SUMMARY | 2024-10-20 09:48 | XMS_ITS | Encounter Summary ---
Author Organization [employer] Address [address] [place] [address] Care Team Providers Care Residential Solar Sales Consultant Name Role Phone Jaelyn GarciaP Primary Care Provider [phone] Janeth Parrish DIRECTOR EMPLOYMENT Primary Care Provider [phone] Xochilt Persaud DIRECTOR EMPLOYMENT Primary Care Provider [phone] Lesley Gilbert ANODE ADJUSTER Primary Care Provider [phone] Reason for Visit * Reason Onset Date Comments PT1 06/26/2022 Encounter Details Date Type Department Care Team ([facility] st Contact Info) Description 06/26/2022 Telephone [facility] [address] [place] [address] Jaelyn Garcia FNP [address] [place] [address] Dept [place] [address] PT1 Social History Tobacco Use Types Packs/Day [...] from pt requesting 3 PT1 PT1: *Location: [facility], [address] [place] [address] Specialty: Coloscopy Time: 9:45 am Date: July 01, 2022 Consulting It Architect: Gary Awan *Location: [facility], [address] [place] [address] Specialty: Coloscopy Follow up Time: 9:00 am Date: July 15, 2022 Consulting It Architect: Gary Awan *Location: [facility], [address] [place] [address] Specialty: Cancer Ovary FU Time: 10:45 am Date: July 06, 2022 Consulting It Architect: Gary Awan Please contact pt at [phone] documented in this encounter Plan of Treatment Upcoming Encounters Date Type Department Care Team ([facility] st Contact Info) Description 02/02/2025 11:00 AM EDT Office Visit [facility] [address] [place] [address] Karolyn Mike, OD [address] [place] [address] documented as of this encounter Visit Diagnoses Not on filedocumented in this encounter Care Teams Residential Solar Sales Consultant Relationship Specialty Start Date End Date Jaelyn Garcia FNP PCP - General Family Medicine 01/16/22 02/25/23 Janeth Parrish NP [address] [place] [address] PCP - General Family Medicine 02/26/23 06/23/23 Xochilt Persaud NP [address] [place] [address] PCP - General Family Medicine 06/24/23 03/13/24 Lesley Glibert FNP [address] [place] [address] PCP - General Family Medicine 03/14/24 documented as of this encounter
== END 2024-10-20 10:04 | disposition home or self-care (01) ==
LOC: HO.HWS 09:28
PROVIDERS: PCP Registered Nurse; Visit Provider Obstetrics & Gynecology
DX: Z01.419 Encounter for gynecological examination (general) (routine) without abnormal findings (principal); R10.2 Pelvic and perineal pain; R31.29 Other microscopic hematuria
CPT/HCPCS: 99213; 99396; 99459

== ENCOUNTER 2024-11-20 08:57 | Outpatient (REF) | payer MEDICAID, SELFPAY ==
--- OUTSIDE RECORDS SUMMARY | 2024-11-20 09:11 | XMS_ITS | Encounter Summary ---
Author Organization [employer] Address [address] [place] [address] Care Team Providers Care Head Neck Surgeon Name Role Phone Jaelyn GarciaP Primary Care Provider [phone] Janeth Parrish TELEPHONIC NURSE CASE MANAGER Primary Care Provider [phone] Xochilt Persaud TELEPHONIC NURSE CASE MANAGER Primary Care Provider [phone] Lesley Gilbert INDUSTRIAL ECONOMICS TEACHER Primary Care Provider [phone] Reason for Visit * Reason Onset Date Comments PT1 06/26/2022 Encounter Details Date Type Department Care Team ([facility] st Contact Info) Description 06/26/2022 Telephone [facility] [address] [place] [address] Jaelyn Garcia FNP [address] [place] [address] Dept [place] [address] PT1 Social History Tobacco Use Types Packs/Day [...] from pt requesting 3 PT1 PT1: *Location: [facility], [address] [place] [address] Specialty: Coloscopy Time: 9:45 am Date: July 01, 2022 Wildlife Biostation Research Ecologist: Gary Awan *Location: [facility], [address] [place] [address] Specialty: Coloscopy Follow up Time: 9:00 am Date: July 15, 2022 Wildlife Biostation Research Ecologist: Gary Awan *Location: [facility], [address] [place] [address] Specialty: Cancer Ovary FU Time: 10:45 am Date: July 06, 2022 Wildlife Biostation Research Ecologist: Gary Awan Please contact pt at [phone] documented in this encounter Plan of Treatment Upcoming Encounters Date Type Department Care Team ([facility] st Contact Info) Description 11/22/2024 10:45 AM EDT Office Visit [facility] [address] [place] [address] Lesley Gilbert FNP [address] [place] [address] 02/02/2025 11:00 AM EDT Office Visit [facility] [address] [place] [address] Rashid, Karolyn, OD [address] [place] [address] documented as of this encounter Visit Diagnoses Not on filedocumented in this encounter Care Teams Head Neck Surgeon Relationship Specialty Start Date End Date Jaelyn Garcia FNP PCP - General Family Medicine 01/16/22 02/25/23 Janeth Parrish NP [address] [place] [address] PCP - General Family Medicine 02/26/23 06/23/23 Xochilt Persaud NP [address] [place] [address] PCP - General Family Medicine 06/24/23 03/13/24 Lesley Gilbert FNP [address] [place] [address] PCP - General Family Medicine 03/14/24 documented as of this encounter
== END 2024-11-20 08:58 | disposition home or self-care (01) ==
LOC: HO.MAMMO 08:57
PROVIDERS: PCP Internal Medicine Geriatric Medicine; Visit Provider Obstetrics & Gynecology
DX: Z12.31 Encounter for screening mammogram for malignant neoplasm of breast (principal)
CPT/HCPCS: 77063; 77067

== ENCOUNTER → 2024-11-20 09:00 | Outpatient (BNV) | payer MEDICAID, SELFPAY | PROVIDERS: PCP Internal Medicine Geriatric Medicine; Visit Provider Internal Medicine | DX: Z12.31 Encounter for screening mammogram for malignant neoplasm of breast (principal) | CPT/HCPCS: 77063; 77067 ==

== ENCOUNTER 2024-12-05 10:11 | Outpatient (REF) | payer MEDICAID, SELFPAY ==
--- NOTE | ~2024-12-05 | US_ITS ---
CLINICAL HISTORY: R10.2 - Pelvic and perineal pain Transabdominal and transvaginal pelvic ultrasound Comparison: 09/01/2022 Findings: Uterus 8.8 x 4.5 x 6.1 cm. Four left-sided fibroids were measured. Largest measures 2.3 x 2.6 cm. Small amount of fluid noted in the endometrium. Endometrium 2 mm in thickness. No fluid in the cul-de-sac. Nabothian cysts are noted. Neither ovary identified. Impression: Multiple uterine fibroids as above This document has been electronically signed by: Jaycob Finn MD on 12/05/2024 22:23:41
--- OUTSIDE RECORDS SUMMARY | 2024-12-05 11:16 | XMS_ITS | Encounter Summary ---
Author Organization [employer] Address [address] [place] [address] Care Team Providers Care Barometers Calibrator Name Role Phone Jaelyn GarciaP Primary Care Provider [phone] Janeth Parrish TON CYLINDER INSPECTOR Primary Care Provider [phone] Xochilt Persaud TON CYLINDER INSPECTOR Primary Care Provider [phone] Lesley Gilbert JUNIOR SYSTEMS ADMINISTRATOR Primary Care Provider [phone] Reason for Visit * Reason Onset Date Comments PT1 06/26/2022 Encounter Details Date Type Department Care Team ([facility] st Contact Info) Description 06/26/[address] [facility] MEDICINE [address] [place] [address] Jaelyn Garcia FNP [address] [place] [address] Dept [place] [address] PT1 Social History Tobacco Use Types Packs/Day [...] from pt requesting 3 PT1 PT1: *Location: [facility], [address] [place] [address] Specialty: Coloscopy Time: 9:45 am Date: July 01, 2022 Recycle Coordinator: Gary Awan *Location: [facility], [address] [place] [address] Specialty: Coloscopy Follow up Time: 9:00 am Date: July 15, 2022 Recycle Coordinator: Gary wAan *Location: [facility], [address] [place] [address] Specialty: Cancer Ovary FU Time: 10:45 am Date: July 06, 2022 Recycle Coordinator: Gary Awan Please contact pt at [phone] documented in this encounter Plan of Treatment Upcoming Encounters Date Type Department Care Team ([facility] st Contact Info) Description 02/02/2025 11:00 AM EDT Office Visit [facility] OPTOMETRY [address] [place] [address] Karolyn Mike, OD [address] [place] [address] documented as of this encounter Visit Diagnoses Not on filedocumented in this encounter Care Teams Barometers Calibrator Relationship Specialty Start Date End Date Jaelyn Garcia FNP PCP - General Family Medicine 01/16/22 02/25/23 Janeth Parrish NP [address] [place] [address] PCP - General Family Medicine 02/26/23 06/23/23 Xochilt Persaud NP [address] [place] [address] PCP - General Family Medicine 06/24/23 03/13/24 Lesley Gilbert FNP [address] [place] [address] PCP - General Family Medicine 03/14/24 documented as of this encounter
== END 2024-12-05 10:12 | disposition home or self-care (01) ==
LOC: HO.US 10:11
PROVIDERS: PCP Internal Medicine Geriatric Medicine; Visit Provider Obstetrics & Gynecology
DX: R10.2 Pelvic and perineal pain (principal)
CPT/HCPCS: 76830; 76856

== ENCOUNTER → 2024-12-05 11:02 | Outpatient (BNV) | payer MEDICAID, SELFPAY | PROVIDERS: PCP Internal Medicine Geriatric Medicine; Visit Provider Radiology Diagnostic Radiology | DX: D25.9 Leiomyoma of uterus, unspecified (principal) | CPT/HCPCS: 76830; 76856 ==

== ENCOUNTER 2024-12-07 09:01 | Outpatient (REF) | payer MEDICAID, SELFPAY | END 2024-12-07 09:02 | disposition home or self-care (01) | LOC: HO.LAB 09:01 | PROVIDERS: PCP Registered Nurse; Visit Provider Urology | DX: R31.29 Other microscopic hematuria (principal); N20.0 Calculus of kidney; Z96.0 Presence of urogenital implants | CPT/HCPCS: 81003; 88112; 99202 ==

== ENCOUNTER 2024-12-07 09:01 | Outpatient (AMB) | payer MEDICAID, SELFPAY ==
--- NOTE | 2024-12-07 09:10 | MHC.OFFVIS ---
Intake Visit Reasons: microscopic hematuria Intake Note: New patient presents today for initial visit for microscopic hematuria Urology Medication:None Blood Thinner:None Antibiotic Allergies:None Surveying Or Spatial Science Technician Required: Yes Allergies senna (From Senokot) Allergy (Intermediate, Verified 12/07/24 09:12) Rash cyclobenzaprine Allergy (Unknown, Verified 12/07/24 09:12) Unknown oxybutynin Allergy (Unknown, Verified 12/07/24 09:12) Unknown tolterodine Allergy (Unknown, Verified 12/07/24 09:12) Unknown trospium Allergy (Unknown, Verified 12/07/24 09:12) Unknown HPI Comments Details: Betsey is a 54-year-old female seen as a new patient for microscopic hematuria. Urinalysis 1+ blood. I have discussed reasons for blood in the urine may include but are not limited to kidney stones, cancer in the urinary tract, or inflammatory conditions of the urinary tract. I have discussed workup to include cystoscopy evaluation. History of Present Illness - The patient is a 54-year-old female presenting with hematuria. - Hematuria was detected during urinalysis, - The patient has not observed visible blood in the urine. - A history of kidney stones is noted, which could contribute to hematuria. - The patient underwent a sling procedure for urinary incontinence, which was performed in 2019. - Patient thinks that after sling was done, she was told she had blood in urine by PCP - No history of cigarette smoking or nicotine use is reported. Results - Urinalysis: Blood 1+, Leuk negative Plan - A CT Urogram, fu office cysto, urine for cytology - Cystoscopy is scheduled to inspect the bladder for any abnormalities. [facility] Medical History (Updated 12/07/24 @ 09:38 by Federico Castano MD) Tubular adenoma GERD (gastroesophageal reflux disease) Microscopic hematuria Lesion of right nipple OTIS (stress urinary incontinence, female) Renal stones Migraines High cholesterol Surgical History (Updated 12/07/24 @ 09:38 by Federico Castano MD) Hx of dilation and curettage History of excision of lesion History of endometrial ablation History of pubovaginal sling History of tubal ligation Family History Mother Uterine cancer Social History Household Members: Spouse and Children Housing: House Alcohol intake: never Patient Tobacco Use Status: Never used Tobacco service: No Current occupational status: unemployed Sexual orientation: Straight/Heterosexual Gender identity: Female Female Reproductive History Menstrual Age of Menarche: 12 Review of Systems Const All systems reviewed & are unremarkable except as noted in HPI and below Reports no additional complaints Eyes Reports no additional complaints ENT Reports no additional complaints Card Reports no additional complaints Resp Reports no additional complaints GI Reports no additional complaints Reports as per HPI Musc Reports no additional complaints Skin/Breast Reports system reviewed and no additional complaints, except as documented Neuro Reports no additional complaints Psych Reports no additional complaints Endo Reports no additional complaints Tj/Lymph Reports no additional complaints Aller/Immun Reports no additional complaints Physical Exam Const General: cooperative, healthy appearing and no acute distress Orientation/consciousness: patient oriented x3 HEENT Head: Yes normal to inspection, Yes normocephalic and Yes atraumatic Eyes Conjunctivae: conjunctivae normal Neck Neck: Yes normal visual inspection and Yes trachea midline Chest Chest palpation & inspection: normal inspection of the chest Resp Effort & Inspection: normal respiratory effort GI Inspection: Yes normal to inspection Neuro General: patient oriented x3 Psych Appearance: grossly normal Assessment & Plan Assessment & Plan (1) Hematuria: Code(s): R31.9 - Hematuria, unspecified Category: Medical (2) Renal stones: Code(s): N20.0 - Calculus of kidney Category: Medical (3) History of pubovaginal sling: Comment: 2019 Code(s): Z96.0 - Presence of urogenital implants Category: Surgical Plan Plan - A CT Urogram, fu office cysto, urine for cytology - Cystoscopy is scheduled to inspect the bladder for any abnormalities. Patient Instructions: The patient had an opportunity to ask questions regarding treatment plan. The patient expressed understanding and agreement with the above treatment plan. The patient is aware they should contact our office by phone for worsening of their current condition or the appearance of new symptoms. Compliance is encouraged with any medications and followup testing that is ordered. It is a privilege to be allowed the opportunity to participate in the urologic care of your patient. If you have any questions or concerns regarding treatment for the above conditions please do not hesitate to contact me. The office telephone contact is [phone]. This note is constructed in part using voice recognition software. While every effort has been made to ensure accuracy retort furnace helper errors may have been included. Yours sincerely, Federico Castano MD Scribe Plan - Not visible on output: Patient was informed and verbally consented to the use of an ambient scribe for clinic note documentation during this visit. Coding Level of Care Code New Pt Level 4 (60143) Diagnoses Hematuria R31.9 Renal stones N20.0 History of pubovaginal sling Z96.0
--- OUTSIDE RECORDS SUMMARY | 2024-12-07 09:23 | XMS_ITS | Encounter Summary ---
Author Organization [employer] Address [address] [place] [address] Care Team Providers Care Accounts Receivable Administrator Name Role Phone Lesley Gilbert METAL PRODUCTS FABRICATOR ASSEMBLER Primary Care Provider [phone] Encounter Details Date Type Department Care Team ([facility] Contact Info) Description 12/05/2024 Orders Only [facility] External Provider, [facility] Social History Tobacco Use Types Packs/Day Years Used Date Smoking Tobacco: Never Passive Smoke Exposure: Never Smokeless Tobacco: Never Alcohol Use Standard Drinks/Week Comments Never 0 (1 standard drink = 0.6 oz pur e alcohol) Depression Answer Date Recorded Patient Health Questionnaire-9 Score 12 11/22/2024 Patient Health Questionnaire-9 Score 12 11/22/2024 Last PHQ-9: Questionnaire Data Not on file 0 11/22/2024 Housing Stability Answer Date Recorded What is your housing situation today? I have deb solano 09/22/[address] you li ve. Do you have problems with any of the following? Mold 09/22/2024 Food Insecurity Answer Date Recorded Within the past 12 months, y ou worried that your food would run out before you got money to buy more: Sometimes True 2024 Within the past 12 months,th e food you bought just didn't last and you didn't have enough money to get more: Sometimes True 09/22/2024 Transportation Answer Date Recorded In the past 12 months, has l ack of transportation kept you from medical appts, meetings, work or from getting things needed for daily living? No 09/22/2024 Utilities Answer Date Recorded In the past 12 months, has t he electric, gas, oil or water company threatened to shut off services in your home? No 09/22/2024 Depression Answer Date Recorded Patient Health Questionnaire-2 Score 5 11/22/2024 Internet Access Answer Date Recorded Internet Access Q1 Yes 09/22/2024 Internet Access Q2 Not on file 09/22/2024 Comments Unknown Sex and Gender Information Value Date Recorded Sex Assigned at Female 03/23/2022 10:19 AM EDT Legal Sex Female 10:19 AM EDT Gender Identity Female 03/23/2022 10:19 AM EDT Sexual Orientation Straight 03/23/2022 10 :19 AM EDT documented as of this encounter Plan of Treatment Upcoming Encounters Date Type Department Care Team (Late st Contact Info) Description 02/02/2025 11:00 AM EDT Office Visit [facility] OPTOMETRY [address] [place] [address] Rashid, Karolyn, OD [address] [place] [address] documented as of this encounter Procedures Procedure Name Priority Date/Time Associated Diagnosis Comments US PELVIS TRANSVAGINAL Routine 12/05/2024 10:23 PM EDT documented in this encounter Results * US Pelvis Transvaginal (12/05/2024 10:23 PM EDT) Anatomical Region Laterality Modality Pelvis Ultrasound 12/05/2024 10:2 3 PM EDT Narrative 12/05/2024 10:24 PM EDT [address] [address] Ultrasound Report Signed Patient: Betsey Bee MR#: [id number] : 1970 Acct:[id number] Age/Sex: 54 / F ADM Date: 12/05/24 Loc: HO.US Attending Dr: Prabhu Feliciano MD Ordering Physician: Prabhu Feliciano MD Date of Service: 12/05/24 Procedure(s): US pelvic and transvaginal Accession Number(s): [id number] cc: Babatunde Morales MD; Prabhu Feliciano MD CLINICAL HISTORY: R10.2 - Pelvic and perineal pain Transabdominal and transvaginal pelvic ultrasound Comparison: 09/01/2022 Findings: Uterus 8.8 x 4.5 x 6.1 cm. Four left-sided fibroids were measured. Largest measures 2.3 x 2.6 cm. Small amount of fluid noted in the endometrium. Endometrium 2 mm in thickness. No fluid in the cul-de-sac. Nabothian cysts are noted. Neither ovary identified. Impression: Multiple uterine fibroids as above This document has been electronically signed by: Jaycob Finn MD on 12/05/2024 22:23:41 Dictated By: Jaycob Finn MD Signed By: <Electronically signed by Jaycob Finn MD in OV> 12/05/242223 DD/ 22 TD/TT: 12/05/242222 Shipping Point Inspector: Procedure Note Donotuseinterpreter, Image - 12/05/2024 [place] [id number] Ultrasound Report Signed Patient: Betsey Bee R#: [id number] : 1970Acct:[id number] Age/Sex: 54 / FADM Date: 12/05/24 Loc: HO.US Attending Dr: Prabhu Feliciano MD Ordering Physician: Prabhu Feliciano MD Date of Service: 12/05/24 Procedure(s): US pelvic and transvaginal Accession Number(s): [id number] cc: Name,Babatunde MOTLEY; Prabhu Feliciano MD CLINICAL HISTORY: R10.2 - Pelvic and perineal pain Transabdominal and transvaginal pelvic ultrasound Comparison: 09/01/2022 Findings: Uterus 8.8 x 4.5 x 6.1 cm. Four left-sided fibroids were measured. Largest measures 2.3 x 2.6 cm. Small amount of fluid noted in the endometrium. Endometrium 2 mm in thickness. No fluid in the cul-de-sac. Nabothian cysts are noted. Neither ovary identified. Impression: Multiple uterine fibroids as above This document has been electronically signed by: Jaycob Finn MD on 12/05/2024 22:23:41 Dictated By: Jaycob Finn MD Signed By: <Electronically signed by Jaycob Finn MD in OV> 12/05/242223 DD/ 22 TD/TT: 12/05/242222 Shipping Point Inspector: [facility] External Provider [facility] PROCEDURES Final Result documented in this encounter Visit Diagnoses Not on filedocumented in this encounter Additional Health Concerns Assessment Noted Time PHQ-9 Depression Total Score: 12 025 11:13 AM EDT documented as of this encounter Care Teams Accounts Receivable Administrator Relationship Specialty Start Date End Date Lesley Gilbert FNP [address] [place] [address] PCP - General Family Medicine 03/14/24 documented as of this encounter
== END 2024-12-07 09:48 | disposition home or self-care (01) ==
LOC: HO.HUSH 09:02
PROVIDERS: PCP Registered Nurse; Visit Provider Urology
DX: R31.9 Hematuria, unspecified (principal); N20.0 Calculus of kidney; Z96.0 Presence of urogenital implants; Z13.9 Encounter for screening, unspecified
CPT/HCPCS: 99204

== ENCOUNTER 2024-12-19 08:50 | Emergency (ER) | payer MEDICAID, SELFPAY ==
--- NOTE | ~2024-12-19 | CT_ITS ---
EXAMINATION: CT ABDOMEN AND PELVIS WITH CONTRAST CLINICAL INFORMATION: Left lower quadrant pain COMPARISON: March 20, 2019 TECHNIQUE: Multidetector volumetric images were obtained from the superior aspect of the liver through the pubic symphysis following administration 85 mL of Omnipaque 350 intravenous contrast. Sagittal and coronal reformatted images were obtained on the technologist's workstation. Oral contrast: No This CT examination was performed using dose optimization techniques as appropriate, variously including the following: *Automated exposure control *Adjustment of mA and/or kV according to patient size (this includes techniques or standardized protocols for targeted exams where dose is matched to indication/reason for exam; i.e. extremities or head) *Use of iterative reconstruction technique DLP: 444 mGY*cm FINDINGS: LUNG BASES: The visualized lung bases are unremarkable. LIVER, GALLBLADDER, AND BILIARY TREE: The liver is normal in size, shape, and attenuation. No focal hepatic lesion or biliary ductal dilatation is present. Gallbladder is absent. There is mild dilation of the extra-hepatic bile duct. It measures 11 mm diameter, previously 10 mm. PANCREAS: Unremarkable. SPLEEN: Unremarkable. ADRENAL GLANDS: Unremarkable. KIDNEYS AND URETERS: Again seen are multiple stones in the right greater than left kidney. Stones measure between 1-3 mm. There is no hydronephrosis. There are no stones in the ureters or bladder. BLADDER: Unremarkable. GASTROINTESTINAL TRACT: Pseudodiverticula are present in the descending and sigmoid colon. There is no inflammation in the mesentery or bowel wall thickening. The appendix is within normal limits. The GE junction is within normal limits. ABDOMINAL WALL: No significant hernia is appreciated. LYMPH NODES: Normal. VASCULAR: Unremarkable. PELVIC VISCERA: Fibroid uterus redemonstrated with distortion of the endometrial stripe. Small bilateral ovarian cysts are again noted. There is trace free fluid in the adnexa OSSEOUS STRUCTURES: Unremarkable. CT/CT abdomen pelvis w IV con IMPRESSION: Nephrolithiasis, right greater than left kidney, without hydronephrosis or ureteral stone. Fibroid uterus. Descending and sigmoid colon diverticulosis without evidence of infection. Fleischner guidelines were followed. Electronically signed by: Harlan Cleary MD 12/19/2024 12:49 PM EDT
[2024-12-19 08:59] VITALS: BP 116/72; PULSE 86; RESP 16; TEMP 36.6; O2SAT 98; BMI 28.7
[2024-12-19 09:16] LABS: MANUAL DIFF FLAG NO
[2024-12-19 09:19] LABS: Hematocrit 38.7 % (37.0-47.0); Hemoglobin 12.7 g/dl (12.0-16.0); Imm Gran Abs Auto 0.04 X10*3/uL (0.00-0.03); Imm Gran Pct Auto 0.4 % (0.0-0.4); Lymphocytes Absolute Auto 2.1 X10*3/uL (1.2-4.9); Mean Corpuscular HGB Conc 32.8 g/dl (31.0-35.0); Mean Corpuscular Hemoglobin 27.7 pg (27.0-33.0); Mean Corpuscular Volume 84.5 fL (80.0-98.0); NRBC Abs Auto 0.000 X10*3/uL (0.0-0.012); NRBC Pct Auto 0.0 /100WBC (0.0-0.2); Platelet Count 288 X10*3/uL (160-400); Red Blood Count 4.58 X10*6/uL (4.20-5.50); White Blood Count 9.6 X10*3/uL (4.8-10.8)
[2024-12-19 09:30] VITALS: BP 99/67; PULSE 85; RESP 16; TEMP 36.6; O2SAT 98
--- NOTE | 2024-12-19 09:31 | PC.NURSE ---
Pt roomed changed and placed on 1/2 monitor- VSS ambulated to BR and urine sample sent. Pt awaiting eval by provider.
[2024-12-19 09:35] LABS: Alanine Aminotransferase 13 U/L (0-31); Albumin Level 4.3 g/dL (3.5-5.0); Alkaline Phosphatase 98 U/L (39-117); Anion Gap 8 (12-20); Aspartate Amino Transferase 22 U/L (5-31); Blood Urea Nitrogen 13 mg/dL (9-16); Calcium 8.9 mg/dL (8.4-10.2); Carbon Dioxide 24 mmol/L (22-29); Chloride 109 mmol/L (96-108); Creatinine Clr Calc Pharmacy 49.1; Estimated Glomerular Filt Rate 48; Lipase 16 U/L (8-78); Potassium 4.2 mmol/L (3.3-5.1); Sodium 137 mmol/L (135-145); Total Protein 7.1 g/dL (6.5-8.0)
[2024-12-19 09:37] LABS: UPreg QC Valid YES
[2024-12-19 09:38] LABS: Appearance Urine Clear; Glucose Urine UA Negative (Negative); PH 7.0 (5.0-9.0); Specific Gravity - Urine 1.020 (1.005-1.025); UMIC TRIGGER UACC YES
--- OUTSIDE RECORDS SUMMARY | 2024-12-19 09:48 | XMS_ITS | Encounter Summary ---
Author Organization [employer] Address [address] [place] [address] Care Team Providers Care Automatic Pad Making Machine Operator Name Role Phone Jaelyn GarciaP Primary Care Provider [phone] Janeth Parrish TIRE AND TUBE REPAIRER Primary Care Provider [phone] Xochilt Persaud TIRE AND TUBE REPAIRER Primary Care Provider [phone] Lesley Gilbert FIRMWARE SOFTWARE VERIFICATION ENGINEER Primary Care Provider [phone] Reason for Visit * Reason Onset Date Comments PT1 06/26/2022 Encounter Details Date Type Department Care Team ([facility] st Contact Info) Description 06/26/2022 Telephone [facility] MEDICINE [address] [place] [address] Jaelyn Garcia FNP [address] [place] [address] [place] [address] PT1 Social History Tobacco Use Types Packs/Day [...] from pt requesting 3 PT1 PT1: *Location: [facility], [address] [place] [address] Specialty: Coloscopy Time: 9:45 am Date: July 01, 2022 Behavioral Modification Assistant: Gary Awan *Location: [facility], [address] [place] [address] Specialty: Coloscopy Follow up Time: 9:00 am Date: July 15, 2022 Behavioral Modification Assistant: Gary Awan *Location: [facility], [address] [place] [address] Specialty: Cancer Ovary FU Time: 10:45 am Date: July 06, 2022 Behavioral Modification Assistant: Gary Awan Please contact pt at [phone] documented in this encounter Plan of Treatment Upcoming Encounters Date Type Department Care Team ([facility] st Contact Info) Description 02/02/2025 11:00 AM EDT Office Visit [facility] OPTOMETRY [address] [place] [address] Karolyn Mike, OD [address] [place] [address] documented as of this encounter Visit Diagnoses Not on filedocumented in this encounter Care Teams Automatic Pad Making Machine Operator Relationship Specialty Start Date End Date Jaelyn Garcia FNP PCP - General Family Medicine 01/16/22 02/25/23 Janeth Parrish NP [address] [place] [address] PCP - General Family Medicine 02/26/23 06/23/23 Xochilt Persaud NP [address] [place] [address] PCP - General Family Medicine 06/24/23 03/13/24 Lesley Gilbert FNP [address] [place] [address] PCP - General Family Medicine 03/14/24 documented as of this encounter
[2024-12-19 09:51] LABS: UACC Culture Trigger YES
--- NOTE | 2024-12-19 11:57 | ED.GENADULT ---
HPI - General Adult General Chief complaint: Abdominal Pain Stated complaint: Lower abd pain Time Seen by Provider: 12/19/24 10:55 Source: patient, RN notes reviewed and old records reviewed Mode of arrival: ambulatory Limitations: no limitations History of Present Illness ED Provider: Kuldip CUMMINGS narrative: 54-year-old female with a past medical history significant for bladder prolapse status post pubovaginal sling, hyperlipidemia presents for evaluation of lower abdominal pain. She reports left lower abdominal pain for the last 4 days. She had associated nausea without vomiting or diarrhea. Denies any black or bloody stool She reports her last bowel movement was yesterday and was normal. She rates her pain as 10/10 and constant. She reports a previous cholecystectomy and bladder prolapse correction, she has no other abdominal surgeries. Denies any burning with urination, urinary frequency. She reports that her pain feels higher in her abdomen and when she had her bladder prolapse issues Related Data Home Medications ?Medication ?Instructions ?Recorded ?Confirmed atorvastatin 20 mg tablet 20 mg PO DAILY 03/13/20 03/22/20 cholecalciferol (vitamin D3) 50 50 mcg PO DAILY 03/13/20 03/22/20 mcg (2,000 unit) capsule (Vitamin D3) epinephrine 0.3 mg/0.3 mL 03/13/20 03/22/20 injection, auto-injector ibuprofen 600 mg tablet 600 mg PO TID 03/13/20 03/22/20 hydroxyzine HCl 25 mg tablet 25 mg PO Q8H PRN itch 09/16/21 lidocaine 5 % topical patch 1 patch transdermal DAILY 09/16/21 (Lidoderm) abdominal pain topiramate 25 mg tablet 50 mg PO ONCE 09/16/21 Previous Rx's ?Medication ?Instructions ?Recorded linaclotide 290 mcg capsule 290 mcg PO QAM #30 caps 12/09/23 (Linzess) amoxicillin 875 mg-potassium 1 tab PO BID 7 days #14 tabs 10/23/24 clavulanate 125 mg tablet Allergies Allergy/AdvReac Type Severity Reaction Status Date / Time senna (From [place]) Allergy Intermediate Rash Verified 12/19/24 09:01 cyclobenzaprine Allergy Unknown Unknown Verified 12/19/24 09:01 oxybutynin Allergy Unknown Unknown Verified 12/19/24 09:01 tolterodine Allergy Unknown Unknown Verified 12/19/24 09:01 trospium Allergy Unknown Unknown Verified 12/19/24 09:01 Review of Systems Constitutional: Constitutional: Denies body ache(s), Denies chills and Denies fever(s) Eyes: Eyes: Denies blurry vision ENT: Denies dizziness and Denies dry mouth Cardiovascular: Cardiovascular: Denies chest pain and Denies dyspnea on exertion Respiratory: Respiratory: Denies cough and Denies dyspnea on exertion Gastrointestinal: Gastrointestinal: Reports abdominal pain, Denies melena, Denies hematochezia, Denies change in bowel habits, Denies constipation, Denies diarrhea, Reports nausea and Denies vomiting Musculoskeletal: Musculoskeletal: Denies back pain Integumentary/Breasts: Skin/Breast: Denies rash Neurologic: Denies dizziness PMFSH Past Medical History Medical History (Updated 12/19/24 @ 14:19 by Luis Christiansen) Tubular adenoma GERD (gastroesophageal reflux disease) Microscopic hematuria Lesion of right nipple OTIS (stress urinary incontinence, female) Renal stones Migraines High cholesterol Surgical History (Updated 12/07/24 @ 09:38 by Federico Castano MD) Hx of dilation and curettage History of excision of lesion History of endometrial ablation History of pubovaginal sling History of tubal ligation Family History Family History Mother Uterine cancer Social History Social History Household Members: Spouse and Children Housing: House Alcohol intake: never Patient Tobacco Use Status: Never used Tobacco Smoked in Last 30 Days: No Use of substances other than those prescribed or required for medical reasons: No Advance Directives: No Advance Directives Information Provided: Yes Do you have a plan to hurt others: No Plan service: No Current occupational status: unemployed Sexual orientation: Straight/Heterosexual Gender identity: Female Physical Exam ED Vital Signs: Vital Signs - 24 hr 12/19/24 08:59 12/19/24 09:30 12/19/24 12:06 Temperature 98 F 98 F Pulse Rate 86 85 Respiratory Rate 16 16 16 Blood Pressure 116/72 99/67 Pulse Oximetry 98 98 Oxygen Delivery Method Room Air 12/19/24 13:32 Temperature 98.2 F Pulse Rate 69 Respiratory Rate 18 Blood Pressure 106/75 Pulse Oximetry 99 Oxygen Delivery Method Room Air BMI result Body Mass Index 28.7 Const General: healthy appearing, comfortable, no acute distress, alert and awake Nutritional Appearance: well nourished Orientation/consciousness: patient oriented x3 HENMT Head: Yes normocephalic and Yes atraumatic Eyes Eyelids: Yes eyelids normal Conjunctivae: conjunctivae normal Sclerae: sclerae normal Corneas: corneas normal Pupils: Equal, round and reactive pupils present EOM: EOMs intact bilaterally Neck Neck: Yes full ROM Resp Effort & Inspection: normal respiratory effort, able to speak in complete sentences and not labored Cardio Rate: regular rate Rhythm: regular rhythm GI Other: Tenderness in the left lower quadrant with voluntary guarding. No rebound tenderness Inspection: No distended Palpation (GI): Soft to palpation, not firm, Tenderness to palpation present (GI), Guarding due to palpation present (GI) and not rigid Skin General skin exam: elasticity normal Neuro General: patient oriented x3 Cranial nerves: Yes Equal, round and reactive pupils present and Yes Bilaterally intact EOM present Cognition (Neuro): normal cognition Extrem Other: Moving all extremities well without any obvious deformities Medications Administered Discontinued Medications Generic Name Dose Route Start Last Admin Trade Name Freq PRN Reason Stop Dose Admin Sodium Chloride 1,000 mls @ 999 mls/hr 12/19/24 11:45 12/19/24 13:45 Ns IV 12/19/24 12:45 Infused .Q1H1M MANISH Infusion Iohexol 100 ml 12/19/24 12:17 12/19/24 12:18 Iohexol 350 Mg/Ml 100 Ml Infus..Btl IV 12/19/24 12:18 85 ml ONCE ONE Administration Morphine Sulfate 4 mg 12/19/24 11:33 12/19/24 12:06 Morphine Sulfate 4 Mg/Ml Cartridge IVPUSH 12/19/24 11:34 4 mg ONCE ONE Administration Protocol Ondansetron HCl 4 mg 12/19/24 11:33 12/19/24 12:06 Ondansetron Hcl 4 Mg/2 Ml Vial IVPUSH 12/19/24 11:34 4 mg ONCE ONE Administration Medical Decision Making Medical Decision Making MDM Narrative: 54-year-old female with a past medical history as above presents for evaluation of abdominal pain for the last 4 days. She reports nausea but no other GI or symptoms. She does have voluntary guarding on exam. Her labs are reviewed without any significant findings, vital signs are stable. However given her level of discomfort we will get a CT scan to evaluate for infectious process such as diverticulitis or colitis. The patient is not distended I doubt acute abdomen. Also in the differential includes constipation. Obstructive uropathy is favored to be less likely as the patient has no urinary symptoms. The patient did have a pelvic ultrasound 2 weeks ago that showed fibroid uterus which could explain her pain as well. Differential Diagnosis Differential Diagnoses: The differential diagnosis associated with the presentation includes Constipation Colitis Diverticulitis UTI Uterine fibroids Obstructive uropathy Lab Data MDM Lab Attestation statement: I reviewed the patient's lab results. No leukocytosis or anemia. Normal platelet count. No significant electrolyte abnormalities warranting intervention. Patient's urinalysis has trace bacteria with moderate esterase. This could be a contaminant as there were several squamous epithelial cells seen in the urine as well and the patient has no symptoms. We will await culture 12/19/24 09:07 12/19/24 09:07 Labs: Lab Results 12/19/24 12/19/24 Range/Units 09:07 09:27 WBC 9.6 (4.8-10.8) X10*3/uL RBC 4.58 (4.20-5.50) X10*6/uL Hgb 12.7 (12.0-16.0) g/dl Hct 38.7 (37.0-47.0) % MCV 84.5 (80.0-98.0) fL MCH 27.7 (27.0-33.0) pg MCHC 32.8 (31.0-35.0) g/dl RDW 12.4 (11.0-16.0) % Plt Count 288 (160-400) X10*3/uL MPV 10.0 (9.4-12.3) fL Immature Gran % (Auto) 0.4 (0.0-0.4) % Neut % (Auto) 61.3 (45-73) % Lymph % (Auto) 21.9 (20-40) % [place] % (Auto) 6.9 (2-11) % Eos % (Auto) 9.2 H (0-4) % Baso % (Auto) 0.3 (0-2) % Lymph # (Auto) 2.1 (1.2-4.9) X10*3/uL [place] # (Auto) 0.7 (0.1-1.2) X10*3/uL Eos # (Auto) 0.9 H (0.0-0.4) X10*3/uL Baso # (Auto) 0.0 (0.0-0.2) X10*3/uL Abs Immat Gran (auto) 0.04 H (0.00-0.03) X10*3/uL Absolute Neuts (auto) 5.9 (2.0-8.3) x10*3/uL Absolute Nucleated RBC 0.000 (0.0-0.012) X10*3/uL Nucleated RBC % (auto) 0.0 (0.0-0.2) /100WBC Sodium 137 (135-145) mmol/L Potassium 4.2 (3.3-5.1) mmol/L Chloride 109 H (96-108) mmol/L Carbon Dioxide 24 (22-29) mmol/L Anion Gap 8 L (12-20) BUN 13 (9-16) mg/dL Creatinine 1.19 (0.5-1.4) mg/dL Estim Creat Clear Calc 49.1 Estimated GFR 48 Random Glucose 94 (60-115) mg/dL Calcium 8.9 (8.4-10.2) mg/dL Total Bilirubin 0.4 (0.0-1.0) mg/dL Direct Bilirubin 0.1 (0.0-0.5) mg/dL AST 22 (5-31) U/L ALT 13 (0-31) U/L Alkaline Phosphatase 98 (39-117) U/L Total Protein 7.1 (6.5-8.0) g/dL Albumin 4.3 (3.5-5.0) g/dL Lipase 16 (8-78) U/L Urine Color Yellow Urine Appearance Clear Urine pH 7.0 (5.0-9.0) Ur Specific [place] 1.020 (1.005-1.025) Urine Protein Negative (Neg-Trace) mg/dL Urine Glucose (UA) Negative (Negative) mg/dL Urine Ketones Negative (Negative) mg/dL Urine Blood Negative (Negative) Urine Nitrite Negative (Negative) Ur Leukocyte Esterase Moderate (2+) H (Negative) Urine RBC 0-2 (0-2) /HPF Urine WBC 6-10 (0-5) /HPF Ur Squamous Epith Cells 3-5 (0-2) /HPF Urine Bacteria Trace (None Seen) Hyaline Casts 0-2 (0-2) /LPF Urine Test NEGATIVE (NEGATIVE) Radiology Impression Discussion of test interpretation with radiology: I have reviewed the radiologist's reading. Radiologist Impression: CT/CT abdomen pelvis w IV con IMPRESSION: Nephrolithiasis, right greater than left kidney, without hydronephrosis or ureteral stone. Fibroid uterus. Descending and sigmoid colon diverticulosis without evidence of infection. Fleischner guidelines were followed. Electronically signed by: Harlan Cleary MD 12/19/2024 12:49 PM EDT RP Discharge Plan Discharge Clinical Impression: Abdominal pain Patient Disposition: Home, Self-Care Instructions: Abdominal Pain (ED), Uterine Fibroids (ED) Additional Instructions: Your workup in the ER today was reassuring. This includes your blood work, your CT scan did show a fibroid uterus which is likely the cause of your pain. You do not have an obvious UTI but we will call you if the culture grows any bacteria of concern Use ibuprofen and Tylenol for pain. You may follow-up with your primary doctor, return for new or worsening symptoms Prescriptions: No Action Linzess 290 mcg capsule 290 mcg PO QAM Qty: 30 4RF amoxicillin-pot clavulanate 875-125 mg tablet 1 tab PO BID 7 Days Qty: 14 0RF atorvastatin 20 mg Tablet 20 mg PO DAILY epinephrine 0.3 mg/0.3 mL Auto-Injector ibuprofen 600 mg Tablet 600 mg PO TID cholecalciferol (vitamin D3) [Vitamin D3] 50 mcg (2,000 unit) Capsule 50 mcg PO DAILY topiramate 25 mg tablet 50 mg PO ONCE lidocaine [Lidoderm] 5 % adhesive patch,medicated 1 patch transdermal DAILY hydroxyzine HCl 25 mg tablet 25 mg PO Q8H PRN (Reason: itch) Print Language: Guinean
[2024-12-19 12:06] VITALS: RESP 16
[2024-12-19] MEDS: iohexoL 350 MG/ML 100 ML INFUS..BTL IV (12:18)
[2024-12-19 13:32] VITALS: BP 106/75; PULSE 69; RESP 18; TEMP 36.8; O2SAT 99
[2024-12-19 14:37] VITALS: BP 106/75; PULSE 69; RESP 18; TEMP 36.8; O2SAT 99
== END 2024-12-19 14:38 | disposition home or self-care (01) ==
PROVIDERS: Emergency Provider Emergency Medicine
DX: R10.32 Left lower quadrant pain (principal); D25.9 Leiomyoma of uterus, unspecified; E78.5 Hyperlipidemia, unspecified; Z79.02 Long term (current) use of antithrombotics/antiplatelets; Z79.899 Other long term (current) drug therapy
CPT/HCPCS: 36415; 74177; 80048; 80076; 81001; 81025; 83690; 85025; 87086; 96361; 96374; 96375; 99284; J2270; J2405; Q9967

== ENCOUNTER → 2024-12-19 11:33 | Outpatient (BNV) | payer MEDICAID, SELFPAY | PROVIDERS: Emergency Provider Emergency Medicine; Visit Provider Radiology Diagnostic Radiology | DX: N20.0 Calculus of kidney (principal) | CPT/HCPCS: 74177 ==

== ENCOUNTER 2025-01-10 10:28 | Outpatient (AMB) | payer MEDICAID, SELFPAY ==
--- NOTE | 2025-01-10 10:30 | A.OFFVIS_ITS ---
Intake Visit Reasons: Ultrasound follow up/Urine Dip Solar Fabrication Technician Required: Yes Solar Fabrication Technician Language: Bundle Clerk Services: Solar Fabrication Technician Present (in person) Solar Fabrication Technician Name: Cynthia PAULETTE Cai Information Interpreted: non-clinical & clinical Network Security Analyst: Network Security Analyst Present (Cynthia Cai PAULETTE) Accompanied by: Self / Same As Patient Allergies senna (From Senokot) Allergy (Intermediate, Verified 12/19/24 09:01) Rash Iodinated Contrast Media (IV Contrast Dye) Allergy (Mild, Verified 01/10/25 10:39) Flushing morphine Allergy (Mild, Verified 01/10/25 10:39) Rash cyclobenzaprine Allergy (Unknown, Verified 12/19/24 09:01) Unknown oxybutynin Allergy (Unknown, Verified 12/19/24 09:01) Unknown tolterodine Allergy (Unknown, Verified 12/19/24 09:01) Unknown trospium Allergy (Unknown, Verified 12/19/24 09:01) Unknown HPI Comments Details: Presenting for ultrasound follow-up. The patient had an episode of vaginal spotting few weeks ago. Last urine culture was negative, last visit urine dip showed microscopic hematuria 12/05/2024 pelvic ultrasound showed the following: Uterus 8.8 x 4.5 x 6.1 cm. Four left-sided fibroids were measured. Largest measures 2.3 x 2.6 cm. Small amount of fluid noted in the endometrium. Endometrium 2 mm in thickness. No fluid in the cul-de-sac. Nabothian cysts are noted. Neither ovary identified. 12/19/2024 CT scan with contrast showed the following: IMPRESSION: Nephrolithiasis, right greater than left kidney, without hydronephrosis or ureteral stone. Fibroid uterus. Descending and sigmoid colon diverticulosis without evidence of infection. Fleischner guidelines were followed. [facility] Medical History (Updated 01/10/25 @ 10:47 by Prabhu Feliciano MD) Tubular adenoma GERD (gastroesophageal reflux disease) Microscopic hematuria Lesion of right nipple OTIS (stress urinary incontinence, female) Renal stones Migraines High cholesterol Surgical History (Updated 12/07/24 @ 09:38 by Federico Castano MD) Hx of dilation and curettage History of excision of lesion History of endometrial ablation History of pubovaginal sling History of tubal ligation Family History Mother Uterine cancer Social History Household Members: Spouse and Children Housing: House Alcohol intake: never Patient Tobacco Use Status: Never used Tobacco service: No Current occupational status: unemployed Sexual orientation: Straight/Heterosexual Gender identity: Female Female Reproductive History Menstrual Age of Menarche: 12 Review of Systems Const All systems reviewed & are unremarkable except as noted in HPI and below Reports as per HPI and Reports no additional complaints GI Reports no additional complaints Reports no additional complaints Assessment & Plan Assessment & Plan (1) Microscopic hematuria: Comment: Nephrolithiasis Code(s): R31.29 - Other microscopic hematuria Category: Medical Plan: Repeat urine dip done in the office today showed +2 microscopic hematuria. Discussed with the patient the persistent microscopic hematuria and nephrolithiasis known CT scan. The patient has an appointment with Urology on 02/15/2025 (2) Uterine myoma: Code(s): D25.9 - Leiomyoma of uterus, unspecified Category: Medical Plan: Discussed with the patient the findings on pelvic ultrasound & the risk of myosarcoma; in addition reviewed with the patient that malignancy and pre malignancy cannot be ruled out without hysterectomy for pathological evaluation ; furthermore, explained to the patient the limitation of pelvic ultrasound and endometrial biopsy in the setting. Discussed with the patient the options of treatment including expectant management versus hysterectomy; the pros and cons, risks benefits of each approach were discussed with the patient including the fact that in cases of myosarcoma, surgical treatment can lead to early diagnosis and positively affects the prognosis; after further discussion, the patient decided to proceed with expectant management. Will repeat pelvic ultrasound periodically. Instructions given to patient to call in case any of the following occurs: pressure symptoms, abnormal uterine bleeding, pelvic pain; and to schedule a six-months pelvic ultrasound (order placed) and a follow-up appointment . All questions answered, the patient verbalized understanding and agreed with the plan . (3) Postmenopausal bleeding: Code(s): N95.0 - Postmenopausal bleeding Category: Medical Plan: Discussed with the patient the results of the pelvic ultrasound showing an endometrial stripe thickness of 2 mm. Explained to the patient with an endometrial stripe of 4 mm &/or less, there is a high negative predictive value in detecting endometrial pathology including endometrial hyperplasia, polyps or malignancy. Therefore, there is no indication for endometrial sampling. Discussed with the patient the sensitivity, specificity, and positive and the negative predictive value of using ultrasound in detecting endometrial pathology. The patient was instructed to call if bleeding recurs, will proceed with endometrial sampling out endometrial pathology. All questions were answered and the patient verbalized understanding and agreed with the plan. Orders: Orders US pelvic and transvaginal 6 Months D25.9 - Leiomyoma of uterus, unspecified Coding Level of Care Code Est Pt Level 3 (87066) Diagnoses Microscopic hematuria R31.29 Uterine myoma D25.9 Postmenopausal bleeding N95.0
--- OUTSIDE RECORDS SUMMARY | 2025-01-10 11:44 | XMS_ITS | Encounter Summary ---
Author Organization [employer] Address [address] [place] [address] [address] [place] [address] Care Team Providers Care Auction Assistant Name Role Phone Jaelyn Garcia INDUSTRIAL/ORGANIZATIONAL PSYCHOLOGIST Primary Care Provider Reba Janeth Boles CHARCOAL UNLOADER Primary Care Provider [phone] Xochilt Persaud CHARCOAL UNLOADER Primary Care Provider [phone] Lesley Gilbert INDUSTRIAL/ORGANIZATIONAL PSYCHOLOGIST Primary Care Provider [phone] Reason for Visit * Reason Onset Date Comments PT1 06/26/2022 Encounter Details Date Type Department Care Team (Late st Contact Info) Description 06/26/2022 Telephone [facility] MEDICINE [address] [place] [address] Jaelyn Garcia FNP PT1 Social History Tobacco Use Types Packs/Day [...] from pt requesting 3 PT1 PT1: *Location: [address] [address] Specialty: Coloscopy Time: 9:45 am Date: July 01, 2022 Psychological Stress Evaluator: SonGary *Location: [facility], [address] [place] [id number] Specialty: Coloscopy Follow up Time: 9:00 am Date: July 15, 2022 Psychological Stress Evaluator: Gary Awan *Location: [facility], [address] [place] [address] Specialty: Cancer Ovary FU Time: 10:45 am Date: July 06, 2022 Psychological Stress Evaluator: Gary Awan Please contact pt at [phone] documented in this encounter Plan of Treatment Upcoming Encounters Date Type Department Care Team (Late st Contact Info) Description 02/02/2025 11:00 AM EDT Office Visit [facility] OPTOMETRY [address] [place] [address] Karolyn Mike, OD [address] [place] [address] documented as of this encounter Visit Diagnoses Not on filedocumented in this encounter Care Teams Auction Assistant Relationship Specialty Start Date End Date Jaelyn Garcia FNP PCP - General Family Medicine 01/16/22 02/25/23 Janeth Parrish NP [address] [place] [address] PCP - General Family Medicine 02/26/23 06/23/23 Xochilt Persaud NP [address] [place] [address] PCP - General Family Medicine 06/24/23 03/13/24 Lesley Gilbert FNP [address] [place] [address] PCP - General Family Medicine 03/14/24 documented as of this encounter
== END 2025-01-10 10:59 | disposition home or self-care (01) ==
LOC: HO.HWS 10:29
PROVIDERS: PCP Registered Nurse; Visit Provider Obstetrics & Gynecology
DX: R31.29 Other microscopic hematuria (principal); D25.9 Leiomyoma of uterus, unspecified; N95.0 Postmenopausal bleeding
CPT/HCPCS: 99213

== ENCOUNTER → 2025-01-10 10:28 | Outpatient (BNVA) | payer MEDICAID, SELFPAY | PROVIDERS: PCP Registered Nurse; Visit Provider Obstetrics & Gynecology | DX: R31.29 Other microscopic hematuria (principal); D25.9 Leiomyoma of uterus, unspecified; N95.0 Postmenopausal bleeding | CPT/HCPCS: 99212 ==